=== PATIENT | female | born 1970 | race Caucasian/White ===

== ENCOUNTER 2017-04-10 15:13 | Observation (INO) ==
[2017-04-10] MEDS ORDERED: *HR* HYDROmorphone (PF) 1 MG/ML SYRINGE IVP ONE ×2 (15:33→22:35)
[2017-04-10] MEDS ORDERED: Aspirin 325 MG TABLET PO ONE (15:33)
[2017-04-10] MEDS ORDERED: Ondansetron 4 MG/2 ML VIAL IVP ONE (15:49)
--- NOTE | 2017-04-10 15:53 | Emergency Department Note ---
Disposition Clinical Impression: RUQ pain Chest pain Qualifiers: Chest pain type: unspecified Qualified Code(s): R07.9 - Chest pain, unspecified Dyspnea Qualifiers: Dyspnea type: unspecified Qualified Code(s): R06.00 - Dyspnea, unspecified Disposition: Admitted As Inpatient Condition: Good Time of Disposition: 19:47 SOB HPI - General Chief Complaint: ED Shortness of Breath/Dyspnea Stated Complaint: ERIC Time Seen by Provider: 04/10/17 15:20 Source: patient Mode of arrival: ambulatory Limitations: no limitations Nursing Notes Reviewed: Yes Vital Signs Reviewed: Yes - History of Present Illness Patient is a 46-year-old female with past medical history of CHF, COPD, migraines, previous PE. She states that she is not currently on a blood thinner. She says that she was on Lovenox and xarelto a year ago and that this was discontinued. Patient has had multiple presentations to the ER since the beginning of the ER over 20. She presents today due to shortness of breath, right-sided chest pain, right upper quadrant pain, nausea and vomiting. She also states she had fevers elevated liver 100 at home. She says that she has had PE in the right lower lung before and presented with this kind of pain. She was seen 5-6 days ago in the ER for abdominal pain. She said that time she had significant generalized abdominal pain but then this was relieved after a large bowel movement 1-2 days ago. She had a d-dimer done during that visit that was elevated mildly over 500. She is told that if she has shortness of breath that was worsening to come back for a VQ scan. She says that she cannot have a CTA of the chest due to being allergic to contrast, she gets swelling of the neck and throat with IV contrast. - Related Data Home Medications Medication Instructions Recorded Confirmed Albuterol Sulfate [Proair Hfa] 1 - 2 puff IH Q4H PRN MDD See 02/18/16 04/15/16 Comment. Aspirin 325 mg PO DAILY 03/29/16 04/30/16 Previous Rx's Medication Instructions Recorded Ciprofloxacin OPTH Soln [Ciloxan 2 drop RIGHT EAR QID #1 bottle 05/19/16 OPTH Soln] Hyoscyamine SL [Levsin SL] 0.125 mg SL TID 5 Days 05/19/16 OxyCODONE/APAP 5/325 [Percocet 1 each PO Q6HR PRN #15 tablet 06/08/16 5/325] Promethazine [Phenergan] 25 mg PO Q8HR PRN #10 tablet 06/08/16 Promethazine [Phenergan] 12.5 mg PO Q8HR #5 tablet 06/14/16 Buspirone HCl [Buspar] 10 mg PO BID PRN 14 Days 06/23/16 OxyCODONE/APAP 5/325 [Percocet 1 each PO Q6HR PRN #10 tablet 06/27/16 5/325 MG] cephALEXin [Keflex] 500 mg PO TID #21 capsule 08/07/16 Promethazine [Phenergan] 25 mg PO Q8HR PRN #10 tablet 08/15/16 Meloxicam [Mobic] 7.5 mg PO DAILY #20 tablet 08/27/16 Promethazine [Phenergan] 25 mg PO Q8HR PRN #10 tablet 09/03/16 Tramadol HCl [Ultram] 50 mg PO QID PRN #15 tab 11/25/16 Acetaminophen w/Cod 300-30 mg 1 each PO Q6HR #12 tablet 01/11/17 [Tylenol w/Codeine #3] Diclofenac Sodium [Voltaren] 50 mg PO Q8HR #30 tablet. 01/11/17 Ondansetron ODT [Zofran ODT] 4 mg SL Q6HR #20 tab.rapdis 01/11/17 Dicyclomine [Bentyl] 10 mg PO QID PRN #20 capsule 02/12/17 Ondansetron HCl [Zofran] 4 mg PO Q8HR PRN #15 tablet 02/12/17 Ibuprofen [Motrin] 800 mg PO Q8HR #15 tablet 03/16/17 Ondansetron ODT [Zofran ODT] 4 mg SL Q6HR #8 tab.rapdis 03/16/17 Dicyclomine [Bentyl] 10 mg PO QID #20 capsule 04/09/17 Docusate Sodium [Colace] 100 mg PO BID #20 capsule 04/09/17 Promethazine [Phenergan] 25 mg PO Q6HR PRN #20 tablet 04/09/17 Rivaroxaban [Xarelto] 15 mg PO BID #6 tablet 04/09/17 Allergies Allergy/AdvReac Type Severity Reaction Status Date / Time diphenhydramine Allergy See Verified 04/10/17 15:17 [From Benadryl] Comments gabapentin Allergy See Verified 04/10/17 15:17 Comments hydrocodone [From Vicodin] Allergy See Verified 04/10/17 15:17 Comments ketorolac [From Toradol] Allergy See Verified 04/10/17 15:17 Comments sumatriptan [From Imitrex] Allergy See Verified 04/10/17 15:17 Comments morphine AdvReac Itching Verified 04/10/17 15:17 nitroglycerin AdvReac Hypotension Verified 04/10/17 15:17 iv dye AdvReac Severe Hives Uncoded 01/01/17 22:56 All systems ED: reviewed and negative except as stated. Constitutional: Reports: fever Cardiovascular: Reports: chest pain, dyspnea on exertion Respiratory: Reports: dyspnea, hemoptysis Gastrointestinal: Reports: abdominal pain, nausea, vomiting. Denies: diarrhea, constipation, hematemesis, melena Past Medical History - Past Medical History Attestation: Yes The following information was validated with the patient. Source: patient Medical history: Reports: CHF, COPD, DVT, hyperlipidemia, migraine, pulmonary embolus, seizures, syncope Surgical history: Reports: , hysterectomy, other Psychiatric history: Reports: anxiety, depression, panic disorder, previous psychiatric hospitalization [employer] history: Reports: non-contributory - Social History Smoking Status: Light tobacco smoker Smokeless Tobacco Status: No Alcohol use: Reports: none Drug use: Reports: none Physical Exam Patient is crying, holding her right upper abdomen and right lower chest. She is yelling that she cannot breathe. Oxygen saturation is 99% on room air. She is pushing her face into the side of the bed and says that she is having severe pain. - General Limitations: no limitations General appearance: alert, other - Head Head exam: atraumatic, normocephalic, normal inspection - Eye Eye exam: Present: normal appearance, PERRL, EOMI - ENT ENT exam: normal exam, normal oropharynx, mucous membranes moist - Neck Neck exam: Present: normal inspection, full ROM, trachea midline - Chest Chest inspection: Present: normal inspection, symmetric chest wall rise, tenderness (right lateral ribs 4-6 ). Absent: rash - Respiratory Respiratory exam: Present: normal lung sounds bilaterally. Absent: respiratory distress, wheezes, stridor - Cardiovascular Cardiovascular exam: Present: normal rhythm, tachycardia, normal heart sounds - Abdominal Exam Abdominal exam: Present: soft, tenderness (RUQ, moderate). Absent: distention, guarding, rebound, rigidity - Extremities Exam Extremities exam: Present: normal inspection, full ROM. Absent: tenderness, pedal edema, calf tenderness - Neurological Exam Neurological exam: Present: alert, oriented X3 - Psychiatric Psychiatric exam: Present: anxious - Skin Skin exam: Present: warm, dry, intact, normal color Course Course Narrative: Patient was tachycardic, tachypneic. Patient is crying, holding her right upper abdomen and right lower chest. She is yelling that she cannot breathe. Oxygen saturation is 99% on room air. She is pushing her face into the side of the bed and says that she is having severe pain. Patient has tenderness of the right upper quadrant as well. We will obtain basic labs, troponin, EKG, chest x -ray, d-dimer. Also obtain LFTs and lipase. I looked back at her previous labs , LFTs and lipase were all within normal limits 5-6 days ago. Patient has multiple visits over the past several months, multiple ER visits over the past several years. At times, she was here 5-6 times a month. She said various complaints from chest pain to abdominal pain to falls. She says that she is allergic to morphine and that Dilaudid works for her. I also did an [facility] report that shows multiple different pills for narcotics filled at multiple different pharmacies. EKG shows sinus rhythm with no acute ST changes. 19:44 white blood cell count, hemoglobin all within normal limits. LFTs within normal limits. BMP within normal limits. Troponin negative. Chest x- ray negative for any acute cardiopulmonary process. I discussed the results with the patient, she states that she is still having significant pain. I talked with the hospitalist, Dr. Hernandez, for admission. He requested that I give the patient Lovenox 1 mg/kg 1 dose to cover for possible PE despite the negative d-dimer. WIll admit for further care and obs, trend troponins. Vital Signs Temperature 97.9 F 04/10/17 15:14 Pulse Rate 109 04/10/17 15:14 Respiratory Rate 24 04/10/17 15:14 Blood Pressure 162/103 04/10/17 15:14 O2 Sat by Pulse Oximetry 97 04/10/17 15:14 Temperature 97.9 F 04/10/17 15:14 Pulse Rate 85 04/10/17 19:26 Respiratory Rate 16 04/10/17 19:26 Blood Pressure 123/86 04/10/17 19:26 O2 Sat by Pulse Oximetry 96 04/10/17 19:26 Oxygen Delivery Oxygen Delivery Room Air Shortness of Breath/Dyspnea - MDM Narrative Medical decision making narrative: white blood cell count, hemoglobin all within normal limits. LFTs within normal limits. BMP within normal limits. Troponin negative. Chest x-ray negative for any acute cardiopulmonary process. I discussed the results with the patient, she states that she is still having significant pain. I talked with the hospitalist, Dr. Hernandez, for admission. He requested that I give the patient Lovenox 1 mg/kg 1 dose to cover for possible PE despite the negative d-dimer. WIll admit for further care and obs, trend troponins. Vitals continued to be within normal limits at this time. - Medical Records Medical records reviewed: Yes I reviewed the patient's medical records. - Lab Data Lab results reviewed: Yes I reviewed the patient's lab results. Result diagrams: 04/10/17 16:20 04/10/17 16:20 Lab Results 04/10/17 04/10/17 04/10/17 Range/Units 16:20 16:20 16:20 WBC 7.4 (4.3-11.1) K/mcL RBC 5.15 H (3.82-4.97) M/mcL Hgb 14.5 (11.5-15.4) g/dL Hct 45.6 H (35.3-44.9) % MCV 88.5 (83.0-100.0) fL MCH 28.2 (28.0-33.3) pg MCHC 31.8 (31.6-35.5) g/dL RDW 14.2 (11.5-14.5) % Plt Count 250 (140-400) K/mcL MPV 9.7 (9.4-12.4) fL Immature Gran % 0.1 (0-4) % Seg Neutrophils % 71.4 % Lymphocytes % 20.5 % Monocytes % 6.5 % Eosinophils % 1.2 % Basophils % 0.3 % Neutrophils # 5.2 (1.6-8.9) K/mcL Lymphocytes # 1.5 (0.6-4.6) K/mcL Monocytes # 0.5 (0.0-1.3) K/mcL Eosinophils # 0.1 (0.0-0.6) K/mcL Basophils # 0.0 (0.0-0.2) K/mcL Immature Plt Fraction 3.7 (1.1-6.1) % D-Dimer (0-500) ng/mLFEU Sodium 138 (136-145) mEq/L Potassium 4.0 (3.5-4.5) mEq/L Chloride 107 (98-109) mEq/L Carbon Dioxide 22 (19-29) mEq/L BUN 14 (7-20) mg/dL Creatinine 0.82 (0.57-1.11) mg/dL Est GFR ( Amer) > 60 (> 60) Est GFR (Non-Af Amer) > 60 (> 60) BUN/Creatinine Ratio 17 (6-26) Glucose 94 (70-99) mg/dL Calculated Osmolality 286 (280-300) Lactic Acid 1.5 (0.5-2.2) mmol/L Calcium 8.9 (8.6-10.8) mg/dL Total Bilirubin (0.2-1.2) mg/dL Direct Bilirubin (0.0-0.5) mg/dL Indirect Bilirubin (0.0-1.2) mg/dL AST (5-34) Units/L ALT (0-55) Units/L Alkaline Phosphatase (38-126) Units/L Troponin I (0-0.03) ng/mL B-Natriuretic Peptide (0-100) pg/mL Serum Total Protein (6.0-8.3) g/dL Albumin (3.5-5.0) g/dL Globulin (2.4-3.5) g/dL Albumin/Globulin Ratio (1.1-2.2) Lipase (8-78) Units/L 04/10/17 04/10/17 04/10/17 Range/Units 16:20 16:20 16:20 WBC (4.3-11.1) K/mcL RBC (3.82-4.97) M/mcL Hgb (11.5-15.4) g/dL Hct (35.3-44.9) % MCV (83.0-100.0) fL MCH (28.0-33.3) pg MCHC (31.6-35.5) g/dL RDW (11.5-14.5) % Plt Count (140-400) K/mcL MPV (9.4-12.4) fL Immature Gran % (0-4) % Seg Neutrophils % % Lymphocytes % % Monocytes % % Eosinophils % % Basophils % % Neutrophils # (1.6-8.9) K/mcL Lymphocytes # (0.6-4.6) K/mcL Monocytes # (0.0-1.3) K/mcL Eosinophils # (0.0-0.6) K/mcL Basophils # (0.0-0.2) K/mcL Immature Plt Fraction (1.1-6.1) % D-Dimer 217 (0-500) ng/mLFEU Sodium (136-145) mEq/L Potassium (3.5-4.5) mEq/L Chloride (98-109) mEq/L Carbon Dioxide (19-29) mEq/L BUN (7-20) mg/dL Creatinine (0.57-1.11) mg/dL Est GFR ( Amer) (> 60) Est GFR (Non-Af Amer) (> 60) BUN/Creatinine Ratio (6-26) Glucose (70-99) mg/dL Calculated Osmolality (280-300) Lactic Acid (0.5-2.2) mmol/L Calcium (8.6-10.8) mg/dL Total Bilirubin (0.2-1.2) mg/dL Direct Bilirubin (0.0-0.5) mg/dL Indirect Bilirubin (0.0-1.2) mg/dL AST (5-34) Units/L ALT (0-55) Units/L Alkaline Phosphatase (38-126) Units/L Troponin I 0.00 (0-0.03) ng/mL B-Natriuretic Peptide 77 (0-100) pg/mL Serum Total Protein (6.0-8.3) g/dL Albumin (3.5-5.0) g/dL Globulin (2.4-3.5) g/dL Albumin/Globulin Ratio (1.1-2.2) Lipase (8-78) Units/L 04/10/17 Range/Units 16:20 WBC (4.3-11.1) K/mcL RBC (3.82-4.97) M/mcL Hgb (11.5-15.4) g/dL Hct (35.3-44.9) % MCV (83.0-100.0) fL MCH (28.0-33.3) pg MCHC (31.6-35.5) g/dL RDW (11.5-14.5) % Plt Count (140-400) K/mcL MPV (9.4-12.4) fL Immature Gran % (0-4) % Seg Neutrophils % % Lymphocytes % % Monocytes % % Eosinophils % % Basophils % % Neutrophils # (1.6-8.9) K/mcL Lymphocytes # (0.6-4.6) K/mcL Monocytes # (0.0-1.3) K/mcL Eosinophils # (0.0-0.6) K/mcL Basophils # (0.0-0.2) K/mcL Immature Plt Fraction (1.1-6.1) % D-Dimer (0-500) ng/mLFEU Sodium (136-145) mEq/L Potassium (3.5-4.5) mEq/L Chloride (98-109) mEq/L Carbon Dioxide (19-29) mEq/L BUN (7-20) mg/dL Creatinine (0.57-1.11) mg/dL Est GFR ( Amer) (> 60) Est GFR (Non-Af Amer) (> 60) BUN/Creatinine Ratio (6-26) Glucose (70-99) mg/dL Calculated Osmolality (280-300) Lactic Acid (0.5-2.2) mmol/L Calcium (8.6-10.8) mg/dL Total Bilirubin 0.4 (0.2-1.2) mg/dL Direct Bilirubin 0.2 (0.0-0.5) mg/dL Indirect Bilirubin 0.2 (0.0-1.2) mg/dL AST 15 (5-34) Units/L ALT 16 (0-55) Units/L Alkaline Phosphatase 99 (38-126) Units/L Troponin I (0-0.03) ng/mL B-Natriuretic Peptide (0-100) pg/mL Serum Total Protein 7.3 (6.0-8.3) g/dL Albumin 3.3 L (3.5-5.0) g/dL Globulin 4.0 H (2.4-3.5) g/dL Albumin/Globulin Ratio 0.8 L (1.1-2.2) Lipase 16 (8-78) Units/L - Radiology Data Radiology results reviewed: Yes I reviewed the patient's radiology results. Chest X-Ray 04/10/17 15:33 IMPRESSION: No acute process. D/ / Fercho Spivey MD / Fercho Spivey MD Interpreting Provider: Fercho Spivey MD - EKG Data EKG attestation: Yes I reviewed and interpreted this EKG. EKG results narrative: 04/10/2017 at 15:42. Normal sinus rhythm. Rate 81. MT 112. QRS 91. QTC 402. Normal axis. No acute ST elevation or depression. No acute changes from previous EKG on 02/20/2017 S.B.Harsh - S.BAleksandraAMirian Situation: Demographics, MOA Background: Presenting Complaint, Relevant PMH, Meds, & Allergies Assessment: Vital Signs, Course and respsone to treatment, Exam Concerns, Patient/Family Expectation, Pertinant Lab Results, Outstanding Labs Recommendation: Barrier(s) to disposition, Recommendation based on pending studies, treatments, or consults S.B.A.Erwin Report Given to: Dr. Leonardo Horne Repor Time: 19:47 Attestation Statement - Attestation Attestation: I examined this patient and my medical decision-making was reviewed with the Resident Physician, Dr. Larkin. I agree with the documented findings, disposition and treatment plan as described except to the extent set forth below. Patient is a 46-year-old female, appears older than stated age who presents to the emergency department today with complaints of recurrent shortness of breath , right-sided chest wall pain right upper quadrant pain nausea and vomiting. Patient states she was here the emergency department a few days ago evaluated for the same and she is convinced that she has another PE. Patient has a history of COPD, CHF, prior PE and was discontinued on all anticoagulation approximately one year ago. Patient arrives stable vital signs room air sats are 99% but patient is writhing on the bed holding her right chest wall right upper quadrant area with her hands saying that she cannot breathe. Patient was here and had recent extensive lab evaluation and imaging was discharged home and told that if she had any worsening symptoms with her breathing to come back for possible VQ scan. Patient states she cannot tolerate IV contrast to have a CT chest to rule out PE because she has anaphylaxis to IV dye. Patient also reports that since she has been having subjective fevers and chills, ongoing nausea and vomiting at home with an inability to tolerate anything by mouth as well as right chest wall pain. I agree with patient's physical exam findings as documented on my assessment patient had mild right upper quadrant and epigastric tenderness to palpation, good bowel sounds, no peritoneal signs are noted. He shows placed on a air sampling and monitoring and continuous pulse ox, is given IV pain meds and antiemetics, laboratory evaluation was initiated and patient had chest x-ray. Patient got almost complete relief of pain following IV pain medicine administration was resting comfortably with stable vitals throughout her ED course. Patient's labs including d-dimer and troponin were all within normal limits chest x-ray was also within normal limits. INR reassessment patient began to complain that her pain was coming back. We decided we will admit her for further evaluation of this right-sided chest pain and right abdominal pain for further evaluation. Discussed the case with the hospitalist who accepted the patient for admission and further evaluation.
[2017-04-10 16:35] LABS: Basophils % 0.3 %; Eosinophils # 0.1 K/mcL (0.0-0.6); Eosinophils % 1.2 %; Hematocrit 45.6 % (35.3-44.9); Hemoglobin 14.5 g/dL (11.5-15.4); Immature Granulocytes % 0.1 % (0-4); Immature Platelets 3.7 % (1.1-6.1); Lymphocytes # 1.5 K/mcL (0.6-4.6); Lymphocytes % 20.5 %; Mean Corpuscular HGB Conc 31.8 g/dL (31.6-35.5); Mean Corpuscular Hemoglobin 28.2 pg (28.0-33.3); Mean Corpuscular Volume 88.5 fL (83.0-100.0); Mean Platelet Volume 9.7 fL (9.4-12.4); Monocytes # 0.5 K/mcL (0.0-1.3); Monocytes % 6.5 %; Neutrophils # 5.2 K/mcL (1.6-8.9); Platelet Count 250 K/mcL (140-400); Red Blood Count 5.15 M/mcL (3.82-4.97); Red Cell Distribution Width 14.2 % (11.5-14.5); Segmented Neutrophils % 71.4 %
[2017-04-10 16:49] LABS: BUN/Creatinine Ratio 17 (6-26); Blood Urea Nitrogen 14 mg/dL (7-20); Calcium 8.9 mg/dL (8.6-10.8); Carbon Dioxide 22 mEq/L (19-29); Chloride 107 mEq/L (98-109); Glucose 94 mg/dL (70-99); Osmolality,Calculated 286 (280-300); eGFR For African Americans > 60 (> 60); eGFR For Non-African Americans > 60 (> 60)
[2017-04-10 16:50] LABS: Albumin 3.3 g/dL (3.5-5.0); Albumin/Globulin Ratio 0.8 (1.1-2.2); Bilirubin,Direct 0.2 mg/dL (0.0-0.5); Bilirubin,Indirect 0.2 mg/dL (0.0-1.2); Bilirubin,Total 0.4 mg/dL (0.2-1.2); Total Protein 7.3 g/dL (6.0-8.3)
[2017-04-10 18:14] LABS: Sodium 138 mEq/L (136-145)
[2017-04-10] MEDS ORDERED: *HR* Enoxaparin 100 MG/ML SYRINGE SQ STA (19:37)
[2017-04-10] MEDS ORDERED: Ondansetron 4 MG/2 ML VIAL IVP PRN (20:12)
[2017-04-10] MEDS ORDERED: Acetaminophen 325 MG TABLET PO PRN (20:12)
[2017-04-10] MEDS ORDERED: Naloxone 0.4 MG/ML INJ IVP PRN (20:12)
[2017-04-10] MEDS ORDERED: Hyoscyamine SL 0.125 MG TAB.SUBL SL PRN (20:14)
[2017-04-10 21:04] LABS: Prothrombin Time 11.2 Seconds (9.4-12.1)
--- NOTE | 2017-04-10 23:37 | Internal Med History&Physical ---
Date of Encounter: 04/11/17 Time of Encounter: 23:20 Assessment and Plan (1) Abdominal pain of unknown etiology Current visit: No Status: Acute Acute on chronic abdominal pain, right upper quadrant pain - unclear etiology IV Dilaudid as needed, IV Phenergan, Bentyl, Levsin CT abdomen and pelvis - no acute process Chest x-ray - no acute process VQ scan - pending Cardiac telemetry, pulse ox, monitor closely (2) Chest pain Current visit: No Status: Acute Atypical chest pain - likely to be ACS Continue Aspirin, Lovenox 1 mg/kg subcutaneous given in ED VQ scan - pending Troponin - negative, cycle troponin D-dimer - 217 EKG - normal sinus rhythm with no acute ST-T changes Chest x-ray - no acute process Cardiac telemetry, monitor closely Qualifiers: Chest pain type: unspecified Qualified Code(s): R07.9 - Chest pain, unspecified (3) Anxiety Current visit: No Status: Chronic Chronic anxiety with history of panic attacks Continue Ativan as needed (4) History of pulmonary embolism Current visit: No Status: Chronic History of PE - anticoagulation has been discontinued as per patient (5) DVT prophylaxis Current visit: No Status: Acute Continue heparin subcutaneous Internal Medicine - H&P: HPI Chief complaint: Shortness of breath, chest pain Admitted From: Emergency Dept Plans for Post Hospital Care: Home History of present illness: Ms. Shelby is a 46 year old female with past medical history of CHF, COPD, PE, cough hyperlipidemia, anxiety and panic disorder. Patient presents to the ED with complaints of shortness of breath and right-sided chest pain. Examined in the room. Patient is awake and alert. Not in any distress but in discomfort due to pain. Able to provide a history. No family members at bedside. Patient states she developed shortness of breath and right-sided chest pain and right upper quadrant pain about 1 week ago. Symptoms gradually worsened. She was seen in the ED yesterday for similar complaints and abdominal pain. Patient states her right upper quadrant and right-sided chest pain is sharp and rates it a 9 out of 10. No alleviating factors. Worse with movement. Patient states she needs Dilaudid to help with the pain. She also wants Phenergan for her nausea. Patient states the pain that she is experiencing now is similar to the pain she had during her PE. She also complains of fever. No other acute complaints. Initial workup in the ED is negative except for UTI. Patient had a CT scan of the abdomen and pelvis yesterday and it was normal. Patient refuses to have CTA chest because of contrast allergy. VQ scan is pending. CODE STATUS full code. Past Med Surg Social Fam HX - Past Medical History Medical history: CHF, COPD, DVT, hyperlipidemia, migraine, pulmonary embolus, seizures, syncope Psychiatric history: anxiety, depression, panic disorder, previous psychiatric hospitalization - Past Surgical History Surgical History: , hysterectomy, other - Social History Smoking Status: Light tobacco smoker Smokeless Tobacco Status: No Alcohol use: none Drug use: none - Family History Mother Living Status: Hx Family Cardiac Disorders: Yes Hx Family Respiratory Disorders: Yes (lung ca) Hx Family Cancer: Yes (lung) Hx Family GI Disorders: No Hx Family Endocrine Disorder: No Hx Family Neuromuscular Disorders: No Hx Family Neurologic Disorders: No Hx Family HEENT Disorders: No Hx Family Autoimmune Disorders: No Father Living Status: Still Living Hx Family Cardiac Disorders: Yes Hx Family Endocrine Disorder: Yes (DM) Brother Living Status: Still Living Hx Family Cardiac Disorders: Yes (OR) Internal Medicine - H&P: Meds Albuterol Sulfate [Proair Hfa] 1 - 2 puff IH Q4H PRN MDD See Comment. 02/18/16 [ History] Aspirin 325 mg PO DAILY 03/29/16 [History] Ciprofloxacin OPTH Soln [Ciloxan OPTH Soln] 2 drop RIGHT EAR QID #1 bottle 05/19 [Rx] Hyoscyamine SL [Levsin SL] 0.125 mg SL TID 5 Days 05/19/16 [Rx] OxyCODONE/APAP 5/325 [Percocet 5/325] 1 each PO Q6HR PRN #15 tablet 06/08/16 [Rx ] Promethazine [Phenergan] 25 mg PO Q8HR PRN #10 tablet 06/08/16 [Rx] Promethazine [Phenergan] 12.5 mg PO Q8HR #5 tablet 06/14/16 [Rx] Buspirone HCl [Buspar] 10 mg PO BID PRN 14 Days 06/23/16 [Rx] OxyCODONE/APAP 5/325 [Percocet 5/325 MG] 1 each PO Q6HR PRN #10 tablet 06/27/16 [Rx] cephALEXin [Keflex] 500 mg PO TID #21 capsule 08/07/16 [Rx] Promethazine [Phenergan] 25 mg PO Q8HR PRN #10 tablet 08/15/16 [Rx] Meloxicam [Mobic] 7.5 mg PO DAILY #20 tablet 08/27/16 [Rx] Promethazine [Phenergan] 25 mg PO Q8HR PRN #10 tablet 09/03/16 [Rx] Tramadol HCl [Ultram] 50 mg PO QID PRN #15 tab 11/25/16 [Rx] Acetaminophen w/Cod 300-30 mg [Tylenol w/Codeine #3] 1 each PO Q6HR #12 tablet 01/11/17 [Rx] Diclofenac Sodium [Voltaren] 50 mg PO Q8HR #30 tablet. 01/11/17 [Rx] Ondansetron ODT [Zofran ODT] 4 mg SL Q6HR #20 tab.rapdis 01/11/17 [Rx] Dicyclomine [Bentyl] 10 mg PO QID PRN #20 capsule 02/12/17 [Rx] Ondansetron HCl [Zofran] 4 mg PO Q8HR PRN #15 tablet 02/12/17 [Rx] Ibuprofen [Motrin] 800 mg PO Q8HR #15 tablet 03/16/17 [Rx] Ondansetron ODT [Zofran ODT] 4 mg SL Q6HR #8 tab.rapdis 03/16/17 [Rx] Dicyclomine [Bentyl] 10 mg PO QID #20 capsule 04/09/17 [Rx] Docusate Sodium [Colace] 100 mg PO BID #20 capsule 04/09/17 [Rx] Promethazine [Phenergan] 25 mg PO Q6HR PRN #20 tablet 04/09/17 [Rx] Rivaroxaban [Xarelto] 15 mg PO BID #6 tablet 04/09/17 [Rx] 3 Allergy/AdvReac Type Severity Reaction Status Date / Time diphenhydramine Allergy See Verified 04/10/17 15:17 [From Benadryl] Comments gabapentin Allergy See Verified 04/10/17 15:17 Comments hydrocodone [From Vicodin] Allergy See Verified 04/10/17 15:17 Comments ketorolac [From Toradol] Allergy See Verified 04/10/17 15:17 Comments sumatriptan [From Imitrex] Allergy See Verified 04/10/17 15:17 Comments morphine AdvReac Itching Verified 04/10/17 15:17 nitroglycerin AdvReac Hypotension Verified 04/10/17 15:17 iv dye AdvReac Severe Hives Uncoded 01/01/17 22:56 All Systems PM: A 10-system review of systems was performed and is negative for pertinent findings except as documented above in the HPI. - Constitutional Constitutional: fatigue, fever(s), no weakness - EENT Eyes: no blurry vision - Cardiovascular Cardiovascular ROS IM: chest pain, dyspnea, dyspnea on exertion, no edema, no lightheadedness, no orthopnea, no palpitations, no syncope - Respiratory Respiratory: no cough, no dyspnea, no hemoptysis, no dyspnea on exertion, no wheezing, no chest congestion - Gastrointestinal Gastrointestinal: abdominal pain (Right upper quadrant pain), nausea, no bloating, no cramping, no diarrhea, no hematemesis, no hematochezia, no melena, no vomiting - Genitourinary Genitourinary: no dysuria - Musculoskeletal Musculoskeletal ROS IM: arthralgias - Neurological Neurological ROS: no abnormal gait, no confusion, no dizziness, no loss of vision, no numbness, no tingling - Constitutional Vitals: Temp Pulse Resp BP Pulse Ox 98.0 F 63 27 113/58 95 04/10/17 22:03 04/10/17 22:03 04/10/17 22:03 04/10/17 22:03 04/10/17 22:03 General appearance: Present: A&O X 3, no acute distress, obese, answers questions appropriately. Absent: cooperative Exam: Patient is anxious, in discomfort due to pain - Head Head exam: Present: atraumatic - Eye Eye exam: Present: EOMI - ENT ENT exam: Present: mucous membranes dry - Respiratory Respiratory exam: Present: CTAB. Absent: accessory muscle use, rales, rhonchi, wheezes, tachypnea - Cardiovascular Cardiovascular exam: Present: RRR, +S1, +S2 - GI/Abdominal GI/Abdominal exam: Present: soft, tenderness (Mild right upper quadrant tenderness and right side tenderness). Absent: distended, firm, guarding - Extremities Exam Extremities exam: Present: radial pulses palpable and symmetrical. Absent: calf tenderness, cyanotic, pedal edema - Neurological Exam Neurological exam: Present: alert, oriented X3, no focal deficits. Absent: facial droop, speech deficit Internal Med - H&P Results - Labs CBC & Chem 7: 04/10/17 16:20 04/11/17 03:09 Labs: Cardiac Enzymes 04/10/17 Range/Units 20:42 Troponin I 0.00 (0-0.03) ng/mL
[2017-04-10 23:51] LABS: Bilirubin,Urine Negative (Negative); Blood,Urine Moderate (Negative); Clarity,Urine Clear (Clear); Color,Urine Yellow (Yellow); Glucose,Urine (UA) Normal (Normal); Ketones,Urine Negative (Negative); Leukocyte Esterase,Urine Negative (Negative); Nitrite,Urine Positive (Negative); PH,Urine 5.5 pH Units (5.0-8.0); Protein,Urine Negative (Neg-Trace); Urobilinogen,Urine Normal (Normal)
[2017-04-10 23:52] LABS: Bacteria,Urine Many per hpf (None-Few); Hyaline Casts,Urine None Seen per lpf (None-Few); Squamous Epithelial Cell,Urine Many per lpf (None-Few)
[2017-04-11] MEDS ORDERED: *HR* LORazepam 2 MG/ML VIAL IVP PRN (00:16)
[2017-04-11] MEDS ORDERED: *HR* Promethazine 25 MG/ML VIAL IVP PRN (00:16)
[2017-04-11] MEDS ORDERED: *HR* HYDROmorphone (PF) 1 MG/ML SYRINGE IVP PRN (00:18)
[2017-04-11] MEDS ORDERED: *HR* HYDROmorphone (PF) 1 MG/ML SYRINGE IVP ONE (03:48)
[2017-04-11 04:09] LABS: BUN/Creatinine Ratio 16 (6-26); Blood Urea Nitrogen 14 mg/dL (7-20); Carbon Dioxide 26 mEq/L (19-29); Chloride 105 mEq/L (98-109); Chol/HDL Ratio 5.5 (0-4.9); Cholesterol 182 mg/dL (< 200); Glucose 131 mg/dL (70-99); HDL Cholesterol 33 mg/dL (40-59); LDL Cholesterol,Calculated 108 mg/dL (0-99); Magnesium 2.1 mg/dL (1.6-2.6); Osmolality,Calculated 286 (280-300); Potassium 3.2 mEq/L (3.5-4.5); Sodium 137 mEq/L (136-145); Triglycerides 203 mg/dL (< 150); eGFR For African Americans > 60 (> 60); eGFR For Non-African Americans > 60 (> 60)
[2017-04-11] MEDS ORDERED: *HR* Heparin 5,000 UNIT/ML VIAL SQ SCH (06:00)
[2017-04-11] MEDS ORDERED: Famotidine 20 MG/2 ML VIAL IVP SCH (06:00)
[2017-04-11] MEDS ORDERED: Potassium Chloride 40 MEQ, Lidocaine 1% 2 ML in D5% in Water 500 ML IVPB ONE (08:11)
[2017-04-11] MEDS: Aspirin 325 MG TABLET PO SCH ×2 (09:06→10:11)
[2017-04-11] MEDS ORDERED: *HR* OxyCODONE/APAP 5/325 TABLET PO PRN (09:41)
[2017-04-11] MEDS ORDERED: Ipratropium/Albuterol Neb 3 ML IH PRN (09:55)
--- NOTE | 2017-04-11 09:55 | Internal Med Progress Note ---
Date of Encounter: 04/11/17 Time of Encounter: 09:53 - Assessment and plan (1) Chest pain Current Visit: No Status: Acute Assessment and plan: Of unclear etiology serial TNI negative CXR negative CT abd/pelvis: negative for any acute pathology V/Q scan: negative for PE will obtain 2D echo to evaluate LVEF given patient's history of COPD, this may be contributing to patient's SOB will supplement O2 as needed bronchodilator support pain control patient educated about narcotic abuse, she demonstrates understanding and states she is aware of the risks and is currently in genuine pain. Pt denies any morphine allergy and will be given morphine instead of dilauid If 2D echo is negative, likely d/c in am with follow up with PCP Qualifiers: Chest pain type: unspecified Qualified Code(s): R07.9 - Chest pain, unspecified (2) COPD (chronic obstructive pulmonary disease) Current Visit: Yes Status: Acute Assessment and plan: not in acute exacerbation O2 supplementation as needed bronchodilator support as needed Qualifiers: COPD type: unspecified COPD Qualified Code(s): J44.9 - Chronic obstructive pulmonary disease, unspecified (3) Morbid obesity Current Visit: Yes Status: Chronic (4) Drug-seeking behavior Current Visit: Yes Status: Chronic Assessment and plan: as per pharmacy records patient has history of over 20 ER visits this year and sometimes she has come to the ER 4-5 times a month She has gone to multiple pharmacies to fill up narcotic prescriptions will use narcotics with caution (5) History of pulmonary embolism Current Visit: No Status: Chronic Assessment and plan: patient reports of being treated with anticoagulation for six months and is currently off anticoagulation VQ scan negative for PE (6) DVT prophylaxis Current Visit: No Status: Acute Assessment and plan: Heparin SQ (7) Nausea and vomiting Current Visit: No Status: Acute Assessment and plan: pt reports of not getting relief with zofran phenergan IV prn n/v Qualifiers: Vomiting type: unspecified Vomiting Intractability: non-intractable Qualified Code(s): R11.2 - Nausea with vomiting, unspecified (8) Tobacco abuse Current Visit: Yes Status: Chronic Assessment and plan: smoking cessation counseling provided patient refused nicotine supplementation therapy (9) Hypokalemia Current Visit: Yes Status: Acute Assessment and plan: K supplemented continue to monitor electrolytes and supplement as needed - Subjective Interval history: Patient is a 46y/o female who was admitted for atypical chest pain, abd pain, and UTI. Patient is noncompliant with her medications and reports of not having a PCP. She has history of PE and states she was treated for six months with Xarelto and Lovenox and her doctor discontinued those medications. She does not recall the name of the doctor. She was seen in the ER on 04/09 for the same issues and was discharged to home with PO medications. Patient has history of multiple ER visits and has history of filling narcotic prescriptions from multiple different pharmacies. She was admitted this time for a concern for PE given initial presentation. Patient continues to complain of right sided chest pain. Denies any abd pain at this time. Rt sided chest pain is worsened with deep inspiration. All imaging work up has been negative. She reports of being in excruciating pain. Refusing CTA chest stating she has a contrast allergy and does not want to undergo that test. V/Q scan is negative for PE. She is still complaining of mild shortness of breath but is saturating appropriately on room air, and she has history of COPD and is an every day smoker. - Constitutional Vitals: Temp Pulse Resp BP Pulse Ox 97.5 F L 79 15 100/69 92 04/11/17 08:24 04/11/17 08:24 04/11/17 08:24 04/11/17 08:24 04/11/17 08:24 General appearance: Present: A&O X 3, morbidly obese, no acute distress, answers questions appropriately. Absent: cooperative - Head Head exam: Present: atraumatic, normocephalic - Eye Eye exam: Present: conjuntiva pink, sclera anicteric - Respiratory Respiratory exam: Present: CTAB. Absent: respiratory distress, wheezes Internal Medicine: Result - Labs CBC & Chem 7: 04/10/17 16:20 04/11/17 03:09 Labs: BMP 04/11/17 03:09 Sodium 137 Potassium 3.2 L Chloride 105 Carbon Dioxide 26 BUN 14 Creatinine 0.89 Glucose 131 H Calcium 9.0 Cardiac Enzymes 04/10/17 04/11/17 04/11/17 Range/Units 20:42 03:09 09:05 Troponin I 0.00 0.00 0.00 (0-0.03) ng/mL Urine 04/10/17 Range/Units 23:40 Urine Color Yellow (Yellow) Urine Clarity Clear (Clear) Urine pH 5.5 (5.0-8.0) pH Units Ur Specific [place] 1.020 (1.010-1.025) Urine Protein Negative (Neg-Trace) mg/dL Urine Glucose (UA) Normal (Normal) mg/dL - ABG Interpretation ABG results: PT/INR, D-dimer PT 11.2 Seconds (9.4-12.1) 04/10/17 20:42 D-Dimer 217 ng/mLFEU (0-500) 04/10/17 16:20 - Impressions Impressions Pulmonary Perfusion Imaging 04/11/17 06:20 IMPRESSION: Low Probability for Pulmonary Embolus. D/ / Kirby Lind MD / Kirby Lind MD Interpreting Provider: Kirby Lind MD Consult Discharge Plan - Plan Referrals: NONE,PCP [Primary Care Provider] -
[2017-04-11] MEDS ORDERED: *HR* Morphine 2 MG/ML SYRINGE IVP PRN (10:16)
[2017-04-11 17:27] VITALS: BP 126/84
--- NOTE | 2017-04-13 14:08 | Electrocardiograph Report ---
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
== END 2017-04-11 18:03 | disposition left against medical advice (07) ==
LOC: 3BNU 15:13 → EMEROO 15:13 → 3NENU 20:39
PROVIDERS: ADMIT Family Medicine; ATTEND Registered Nurse

== ENCOUNTER 2017-07-30 17:03 | Observation (INO) ==
[2017-07-30] MEDS ORDERED: Ipratropium/Albuterol Neb 3 ML IH ONE (17:22)
[2017-07-30] MEDS ORDERED: methylPREDNISolone 125 MG/2 ML VIAL IVP ONE (17:22)
--- NOTE | 2017-07-30 17:47 | Emergency Department Note ---
Disposition Clinical Impression: Acute exacerbation of chronic obstructive airways disease Chest pain Qualifiers: Chest pain type: unspecified Qualified Code(s): R07.9 - Chest pain, unspecified Dyspnea Qualifiers: Dyspnea type: shortness of breath Qualified Code(s): R06.02 - Shortness of breath Disposition: Admitted As Inpatient Condition: Good Time of Disposition: 21:16 General Adult HPI - General Chief complaint: ED Shortness of Breath/Dyspnea Stated complaint: cheryl Time Seen by Provider: 07/30/17 17:14 Source: patient Limitations: no limitations Nursing Notes Reviewed: Yes Vital Signs Reviewed: Yes - History of Present Illness HPI Narrative: Patient is a 46 showed a marked sense emergency department with shortness of breath. She states that this has been ongoing for weeks to months. She states that she has recently become sick over the last 4-5 days and her symptoms have worsened. She is now having left-sided chest pain that is sharp and constant. She rates it as an 8 out of 10. She denies any radiation of the pain. States that she has been coughing and the cough is nonproductive. He said that she has coughed up blood and mucus. Patient states that she has vomited in the past. Patient states that she has a history of pulmonary embolus which she has to have V/Q scans and a d-dimer. Pain Scale: 8 - Related Data Home Medications Medication Instructions Recorded Confirmed Albuterol Neb [Proventil Neb] 2.5 mg IH Q4HR PRN 04/11/17 04/11/17 Aspirin [Lo-Dose Aspirin EC] 81 mg PO DAILY 04/11/17 04/11/17 Promethazine [Phenergan] 25 mg PO Q6HR PRN 04/11/17 04/11/17 Previous Rx's Medication Instructions Recorded Azithromycin [Zithromax] 250 mg PO DAILY #6 tablet 05/19/17 Ondansetron ODT [Zofran ODT] 4 mg SL Q6HR #10 tab.rapdis 06/01/17 Promethazine [Phenergan] 25 mg PO Q8HR PRN #14 tablet 07/16/17 Guaifenesin/D-Methorphan Hb/PE 5 ml PO QID PRN #118 ml 07/28/17 [Robitussin Cough-Cold Cf Liq] Allergies Allergy/AdvReac Type Severity Reaction Status Date / Time diphenhydramine Allergy See Verified 07/30/17 17:12 [From Benadryl] Comments gabapentin Allergy See Verified 07/30/17 17:12 Comments hydrocodone [From Vicodin] Allergy See Verified 07/30/17 17:12 Comments ketorolac [From Toradol] Allergy See Verified 07/30/17 17:12 Comments sumatriptan [From Imitrex] Allergy See Verified 07/30/17 17:12 Comments nitroglycerin AdvReac Hypotension Verified 07/30/17 17:12 iv dye AdvReac Severe Hives Uncoded 07/30/17 17:12 All systems ED: reviewed and negative except as stated. Cardiovascular: Reports: chest pain Respiratory: Reports: cough, dyspnea, hemoptysis Gastrointestinal: Reports: vomiting Past Medical History - Past Medical History Medical history: Reports: CHF, COPD, DVT, hyperlipidemia, migraine, pulmonary embolus, seizures, syncope Surgical history: Reports: , hysterectomy, other Psychiatric history: Reports: anxiety, depression, panic disorder, previous psychiatric hospitalization [employer] history: Reports: non-contributory - Social History Smoking Status: Current every day smoker Smokeless Tobacco Status: No Alcohol use: Reports: none Drug use: Reports: none Physical Exam - General Limitations: no limitations General appearance: alert, in no apparent distress - Head Head exam: atraumatic, normocephalic - Eye Eye exam: Present: normal appearance, EOMI - Neck Neck exam: Present: normal inspection, full ROM, trachea midline - Respiratory Respiratory exam: Present: wheezes (Bilateral wheezes) - Cardiovascular Cardiovascular exam: Present: regular rate, normal rhythm, normal heart sounds, +S1, +S2 - Abdominal Exam Abdominal exam: Present: soft, tenderness, normal bowel sounds Abdominal tenderness: Present: diffuse, mild - Extremities Exam Extremities exam: Present: normal inspection, full ROM. Absent: tenderness, calf tenderness - Neurological Exam Neurological exam: Present: alert, oriented X3 - Psychiatric Psychiatric exam: Present: normal affect, normal mood - Skin Skin exam: Present: warm, dry, intact Course Vital Signs Temperature 98.2 F 07/30/17 17:10 Pulse Rate 97 07/30/17 17:10 Respiratory Rate 26 07/30/17 17:10 Blood Pressure 124/84 07/30/17 17:10 O2 Sat by Pulse Oximetry 95 07/30/17 17:10 Temperature 98.2 F 07/30/17 17:10 Pulse Rate 100 07/30/17 20:51 Respiratory Rate 20 07/30/17 20:51 Blood Pressure 131/83 07/30/17 20:51 O2 Sat by Pulse Oximetry 95 07/30/17 20:51 Oxygen Delivery Oxygen Delivery Room Air Medical Decision Making - MDM Narrative Medical decision making narrative: Due to the patient having a history of COPD and pulmonary embolism present with chest pain and shortness of breath we will order a CBC, BMP, EKG, troponin, chest x-ray, lactic acid, blood culture, influenza swab, d dimer. We will also obtain a ventilation perfusion scan to evaluate the patient for possible pulmonary embolus. Patient had an elevated d-dimer of 598. patient had an elevated white count of 13.1. Patient had a mildly elevated BNP of 130. The chest x-ray was essentially unremarkable chest per radiology reading. Patient will need to be admitted to the hospital for further evaluation and management of the patient's chest pain and shortness of breath. The patient's VQ scan showed very low probability for pulmonary embolus. Due to the patient having chest pain and shortness of breath we will admit the patient to the hospital for further evaluation and management. I have spoken with the hospitalist and they have accepted the patient to their service. The patient will be admitted to the hospital at this time. - Medical Records Medical records reviewed: Yes I reviewed the patient's medical records. - Lab Data Lab results reviewed: Yes I reviewed the patient's lab results. Result diagrams: 07/30/17 17:50 07/30/17 17:50 Lab Results 07/30/17 07/30/17 07/30/17 Range/Units 17:50 17:50 17:50 WBC 13.1 H (4.3-11.1) K/mcL RBC 5.12 H (3.82-4.97) M/mcL Hgb 14.8 (11.5-15.4) g/dL Hct 45.6 H (35.3-44.9) % MCV 89.1 (83.0-100.0) fL MCH 28.9 (28.0-33.3) pg MCHC 32.5 (31.6-35.5) g/dL RDW 14.1 (11.5-14.5) % Plt Count 268 (140-400) K/mcL MPV 9.8 (9.4-12.4) fL Immature Gran % 0.3 (0-4) % Seg Neutrophils % 80.8 % Lymphocytes % 13.3 % Monocytes % 4.7 % Eosinophils % 0.7 % Basophils % 0.2 % Neutrophils # 10.6 H (1.6-8.9) K/mcL Lymphocytes # 1.8 (0.6-4.6) K/mcL Monocytes # 0.6 (0.0-1.3) K/mcL Eosinophils # 0.1 (0.0-0.6) K/mcL Basophils # 0.0 (0.0-0.2) K/mcL D-Dimer 598 H (0-500) ng/mLFEU Sodium 139 (136-145) mEq/L Potassium 3.6 (3.5-5.1) mEq/L Chloride 110 H (98-107) mEq/L Carbon Dioxide 26 (23-29) mEq/L BUN 13 (6-20) mg/dL Creatinine 0.75 (0.60-1.20) mg/dL Est GFR ( Amer) > 60 (> 60) Est GFR (Non-Af Amer) > 60 (> 60) BUN/Creatinine Ratio 17 (6-26) Glucose 98 (70-105) mg/dL Calculated Osmolality 288 (280-300) Lactic Acid (0.5-2.2) mmol/L Calcium 8.9 (8.6-10.3) mg/dL Troponin I (< 0.04) ng/mL B-Natriuretic Peptide (Less than 100) pg/mL 07/30/17 07/30/17 07/30/17 Range/Units 17:50 17:50 17:50 WBC (4.3-11.1) K/mcL RBC (3.82-4.97) M/mcL Hgb (11.5-15.4) g/dL Hct (35.3-44.9) % MCV (83.0-100.0) fL MCH (28.0-33.3) pg MCHC (31.6-35.5) g/dL RDW (11.5-14.5) % Plt Count (140-400) K/mcL MPV (9.4-12.4) fL Immature Gran % (0-4) % Seg Neutrophils % % Lymphocytes % % Monocytes % % Eosinophils % % Basophils % % Neutrophils # (1.6-8.9) K/mcL Lymphocytes # (0.6-4.6) K/mcL Monocytes # (0.0-1.3) K/mcL Eosinophils # (0.0-0.6) K/mcL Basophils # (0.0-0.2) K/mcL D-Dimer (0-500) ng/mLFEU Sodium (136-145) mEq/L Potassium (3.5-5.1) mEq/L Chloride (98-107) mEq/L Carbon Dioxide (23-29) mEq/L BUN (6-20) mg/dL Creatinine (0.60-1.20) mg/dL Est GFR ( Amer) (> 60) Est GFR (Non-Af Amer) (> 60) BUN/Creatinine Ratio (6-26) Glucose (70-105) mg/dL Calculated Osmolality (280-300) Lactic Acid 1.5 (0.5-2.2) mmol/L Calcium (8.6-10.3) mg/dL Troponin I < 0.03 (< 0.04) ng/mL B-Natriuretic Peptide 130 H (Less than 100) pg/mL - Radiology Data Radiology results reviewed: Yes I reviewed the patient's radiology results. Chest X-Ray 07/30/17 17:22 IMPRESSION: Essentially unremarkable chest. D/ / Penny Echols MD / Penny Echols MD Interpreting Provider: Penny Echols MD Pulmonary Perfusion Imaging 07/30/17 18:35 IMPRESSION: Very low probability for pulmonary embolus. D/ / John Weber MD / John Weber MD Interpreting Provider: John Weber MD - EKG Data EKG #1 EKG attestation: Yes I reviewed and interpreted this EKG. EKG results narrative: Patient's EKG showed a sinus rhythm with a sinus arrhythmia at a rate of 90 bpm , MI interval of 139, QRS ratio 96, QTc of 397 with a normal axis. This is compared to previous EKG on 08/06/16 which showed a sinus rhythm with a sinus arrhythmia at a rate of 84 bpm there is no acute changes noted between these 2 EKGs. EKG #2 EKG attestation: Yes I reviewed and interpreted this EKG. EKG results narrative: Repeat EKG at 1822 showed sinus tachycardia at a rate of 120 bpm, MI interval of 149, QRS duration of 90, QTc of 406 with a normal axis. There is no STEMI noted on this EKG the patient had received breathing treatment including albuterol prior to second EKG Attestation Statement - Attestation Attestation: Patient was seen with resident physician. I reviewed the history, physical, assessment and plan, and agree with the findings. I also personally evaluated this patient and had [id number] time with this patient. Procedural female presents to department chief complaint of chest pain and shortness of breath. Patient states she has been feeling bad for the last couple days. She has had productive cough. So the chest pain started earlier today flick squeezing tight sensation. She has a history of PEs. She said this feels similar but not entirely. No history of heart disease at this time. She is also had fever she set up 204. On exam vital signs demonstrate that she is afebrile blood pressure and pulse are stable. ENT is unremarkable. Heart regular rhythm and rate. Lungs diffuse wheezing throughout. Abdomen soft and nontender. Extremities unremarkable. Neurologically intact. ED course we will do a full workup for influenza pneumonia and possible PE as well as possible NH. I think this is likely infectious in some regard, but with her multiple other problems we need to rule those out as well. We will likely admit the patient and the hospitalist service for chest pain and shortness of breath. Workup was essentially negative. A V/Q scan as well did not show evidence of PE. Patient continued to have some chest discomfort though we tried several medications. She is allergic to most things. She stated at one point that the only thing that ever works for her is Dilaudid. I was a little uncomfortable giving her narcotics for this as she appeared comfortable especially after breathing treatments. She does have obvious difficulty with breathing. Although this was improved. We will admit her to the hospital service for chest pain and shortness of breath. Agree with resident physician assessment and plan.
[2017-07-30 18:05] LABS: Basophils % 0.2 %; Eosinophils # 0.1 K/mcL (0.0-0.6); Eosinophils % 0.7 %; Hematocrit 45.6 % (35.3-44.9); Hemoglobin 14.8 g/dL (11.5-15.4); Immature Granulocytes % 0.3 % (0-4); Lymphocytes # 1.8 K/mcL (0.6-4.6); Lymphocytes % 13.3 %; Mean Corpuscular HGB Conc 32.5 g/dL (31.6-35.5); Mean Corpuscular Hemoglobin 28.9 pg (28.0-33.3); Mean Corpuscular Volume 89.1 fL (83.0-100.0); Mean Platelet Volume 9.8 fL (9.4-12.4); Monocytes # 0.6 K/mcL (0.0-1.3); Monocytes % 4.7 %; Neutrophils # 10.6 K/mcL (1.6-8.9); Platelet Count 268 K/mcL (140-400); Red Blood Count 5.12 M/mcL (3.82-4.97); Red Cell Distribution Width 14.1 % (11.5-14.5); Segmented Neutrophils % 80.8 %
[2017-07-30] MEDS ORDERED: Aspirin 81 MG TAB.CHEW PO STA (18:18)
[2017-07-30 18:21] LABS: BUN/Creatinine Ratio 17 (6-26); Blood Urea Nitrogen 13 mg/dL (6-20); Calcium 8.9 mg/dL (8.6-10.3); Carbon Dioxide 26 mEq/L (23-29); Chloride 110 mEq/L (98-107); Glucose 98 mg/dL (70-105); Osmolality,Calculated 288 (280-300); Potassium 3.6 mEq/L (3.5-5.1); Sodium 139 mEq/L (136-145); eGFR For African Americans > 60 (> 60); eGFR For Non-African Americans > 60 (> 60)
[2017-07-30] MEDS ORDERED: *HR* Morphine 2 MG/ML SYRINGE IVP ONE (18:21)
[2017-07-30] MEDS ORDERED: Acetaminophen 325 MG TABLET PO ONE (19:04)
--- NOTE | 2017-07-30 21:59 | Internal Med History&Physical ---
<Susan Thornton - Last Filed: 07/30/17 22:20> Date of Encounter: 07/30/17 Time of Encounter: 21:53 Assessment and Plan (1) COPD exacerbation Current visit: Yes Status: Acute Patient has history of COPD and is not on any home oxygen. Patient 02 sat is 95 % on room air. Patient is afebrile and in no respiratory distress at this time. Patient had one breathing treatment in the ED and admits it improved her SOB. CXR was unremarkable. Labs showed elevated WBC at 13.1. EKG showed no acute changes when compared to previous EKG. 1. Will continue DUONEB treatments 2. Will give 40 mg prednisone PO daily. 3. Continue home medication of Azithromycin. 4. Continue to monitor the patient closely. (2) Chest pain of unknown etiology Current visit: Yes Status: Acute Patient is still complaining of chest pain. Vitals are within normal limits. Patient is afebrile. Labs showed an elevated d-dimer of 598, elevated white count of 13.1, and a mildly elevated BNP of 130. Troponins were negative initially. The chest x-ray was essentially unremarkable chest per radiology reading. Patient states she is allergic to contrast dye. Thus, VQ scan was ordered to evaluate for possible PE due to her history. VQ scan showed very low probability for pulmonary embolus. EKG showed no acute changes when compared to previous EKG. 1. Will have patient on cardiac monitoring. 2. Trend series of troponins. 3. Will order an echocardiogram. 4. Will have patient on DVT prophylaxis. 5. Will control patient's pain with Dilaudid. Patient states that she is allergic to nitroglycerin and morphine. (3) DVT prophylaxis Current visit: No Status: Acute Internal Medicine - H&P: HPI Admitted From: Emergency Dept History of present illness: Ms. Shelby is a 46 year old female with a past medical history of pulmonary embolism, COPD, CHF, HLD and current smoker presents to the ED complaining of left sided chest pain and shortness of breath. The patient stated that the chest pain and shortness of breath started today around 3pm and gradually worsening. The patient describes the chest pain as constant and sharp with no radiation that is worse with exertion and coughing. Patient tried 324 mg of aspirin and 2 tablets of 800mg of ibuprofen without any relief. She states that chest pain feels similar to her previous pulmonary embolism but is unsure. She admits associated SOB with the chest pain. She admits cold and congestion symptoms for the past 4-5 days with fever of 104 and admits nausea and vomiting. She also admits mild RUQ abdominal pain that is worse with coughing and palpation. She denies any headaches, vision changes, palpitations, difficulty breathing, constipation, blood in her stool, dysuria, blood in her urine, numbness and tingling, or any weaknesses. Past Med Surg Social Fam HX - Past Medical History Medical history: CHF, COPD, DVT, hyperlipidemia, migraine, pulmonary embolus, seizures, syncope Psychiatric history: anxiety, depression, panic disorder, previous psychiatric hospitalization - Past Surgical History Surgical History: , hysterectomy, other - Social History Smoking Status: Current every day smoker Smokeless Tobacco Status: No Alcohol use: none Drug use: none - Family History Mother Living Status: Hx Family Cardiac Disorders: Yes Hx Family Respiratory Disorders: Yes (lung ca) Hx Family Cancer: Yes (lung) Hx Family GI Disorders: No Hx Family Endocrine Disorder: No Hx Family Neuromuscular Disorders: No Hx Family Neurologic Disorders: No Hx Family HEENT Disorders: No Hx Family Autoimmune Disorders: No Father Living Status: Still Living Hx Family Cardiac Disorders: Yes Hx Family Cancer: Yes Hx Family Endocrine Disorder: Yes (DM) Hx Family Neuromuscular Disorders: Yes (parkinsons) Brother Living Status: Still Living Hx Family Cardiac Disorders: Yes ([place]) Internal Medicine - H&P: Meds Albuterol Neb [Proventil Neb] 2.5 mg IH Q4HR PRN 04/11/17 [History] Aspirin [Lo-Dose Aspirin EC] 81 mg PO DAILY 04/11/17 [History] Promethazine [Phenergan] 25 mg PO Q6HR PRN 04/11/17 [History] Azithromycin [Zithromax] 250 mg PO DAILY #6 tablet 05/19/17 [Rx] Ondansetron ODT [Zofran ODT] 4 mg SL Q6HR #10 tab.rapdis 06/01/17 [Rx] Promethazine [Phenergan] 25 mg PO Q8HR PRN #14 tablet 07/16/17 [Rx] Guaifenesin/D-Methorphan Hb/PE [Robitussin Cough-Cold Cf Liq] 5 ml PO QID PRN # 118 ml 07/28/17 [Rx] 3 Allergy/AdvReac Type Severity Reaction Status Date / Time diphenhydramine Allergy See Verified 07/30/17 17:12 [From Benadryl] Comments gabapentin Allergy See Verified 07/30/17 17:12 Comments hydrocodone [From Vicodin] Allergy See Verified 07/30/17 17:12 Comments ketorolac [From Toradol] Allergy See Verified 07/30/17 17:12 Comments sumatriptan [From Imitrex] Allergy See Verified 07/30/17 17:12 Comments nitroglycerin AdvReac Hypotension Verified 07/30/17 17:12 iv dye AdvReac Severe Hives Uncoded 07/30/17 17:12 All Systems PM: A 10-system review of systems was performed and is negative for pertinent findings except as documented above in the HPI. - Constitutional Vitals: Temp Pulse Resp BP Pulse Ox 98.0 F 90 19 105/65 96 07/30/17 21:49 07/30/17 21:49 07/30/17 21:49 07/30/17 21:49 07/30/17 21:49 General appearance: Present: A&O X 3, answers questions appropriately Exam: Patient is teary on exam as she complains of left sided chest pain. Vitals are within normal limits. - Head Head exam: Present: atraumatic, normocephalic - Eye Eye exam: Present: PERRL, conjuntiva pink, sclera anicteric Pupils: Present: PERRL - ENT ENT exam: Present: mucous membranes moist, normal oropharynx Additional comments: rhinorrhea is present - Neck Neck exam general surgery: Present: supple, trachea midline. Absent: lymphadenopathy - Respiratory Respiratory exam: Present: wheezes (bilateral wheezes in the lower lobes). Absent: accessory muscle use, rales, respiratory distress, rhonchi - Cardiovascular Cardiovascular exam: Present: RRR, +S1, +S2. Absent: diastolic murmur, gallop, rubs, systolic murmur - GI/Abdominal GI/Abdominal exam: Present: normal bowel sounds, soft, tenderness (tender to palpation in the RUQ and epigastric. No ecchymosis, hepatomegaly, or masses. ) , no peritoneal signs. Absent: distended, hepatomegaly, mass, splenomegaly - Extremities Exam Extremities exam: Present: warm, radial pulses palpable and symmetrical. Absent : calf tenderness, cyanotic, pedal edema, tenderness - Neurological Exam Neurological exam: Present: CN II-XII intact, oriented X3, no focal deficits. Absent: pronater drift, facial droop, speech deficit - Skin Skin exam: Present: dry, intact Internal Med - H&P Results - Labs CBC & Chem 7: 07/30/17 17:50 07/30/17 17:50 <Selene Stubbs - Last Filed: 07/31/17 06:03> Date of Encounter: 07/31/17 Internal Medicine - H&P: HPI History of present illness: Ms. Shelby is a 46 year old female All Systems PM: A 10-system review of systems was performed and is negative for pertinent findings except as documented above in the HPI. - Constitutional Vitals: Temp Pulse Resp BP Pulse Ox 98.0 F 75 21 93/56 93 07/31/17 03:33 07/31/17 03:33 07/31/17 03:33 07/31/17 03:33 07/31/17 03:33 Internal Med - H&P Results - Labs CBC & Chem 7: 07/31/17 03:51 07/31/17 03:51 Labs: Short CBC 07/31/17 Range/Units 03:51 WBC 8.1 (4.3-11.1) K/mcL Hgb 13.8 (11.5-15.4) g/dL Hct 43.0 (35.3-44.9) % Plt Count 282 (140-400) K/mcL Neutrophils # 7.5 (1.6-8.9) K/mcL BMP 07/31/17 03:51 Sodium 137 Potassium 3.7 Chloride 107 Carbon Dioxide 25 BUN 17 Creatinine 0.88 Glucose 309 H Calcium 8.9 Cardiac Enzymes 07/30/17 07/31/17 Range/Units 22:30 03:51 Troponin I < 0.03 < 0.03 (< 0.04) ng/mL - Attending Attestation I have seen and examined pt independently, I have discussed with Resident physician Dr Thornton regarding the management plan. Agree with the documentation.
[2017-07-30] MEDS ORDERED: Acetaminophen 325 MG TABLET PO PRN (22:09)
[2017-07-30] MEDS ORDERED: Ondansetron ODT 4 MG TAB.RAPDIS SL PRN (22:09)
[2017-07-30] MEDS ORDERED: Naloxone 0.4 MG/ML INJ IVP PRN (22:09)
[2017-07-30] MEDS ORDERED: Ipratropium/Albuterol Neb 3 ML IH PRN (22:15)
[2017-07-30] MEDS: predniSONE 20 MG TABLET PO SCH (22:42)
[2017-07-30] MEDS: *HR* Heparin 5,000 UNIT/ML VIAL SQ SCH (22:42)
[2017-07-30] MEDS: *HR* HYDROmorphone (PF) 1 MG/ML SYRINGE IVP PRN (22:42)
[2017-07-30] MEDS ORDERED: *HR* LORazepam 1 MG TABLET PO PRN (23:11)
[2017-07-31] MEDS ORDERED: Albuterol 2.5 MG/3 ML NEBULIZER IH PRN (02:44)
[2017-07-31] MEDS: *HR* HYDROmorphone (PF) 1 MG/ML SYRINGE IVP PRN ×3 (03:48→16:31)
[2017-07-31] MEDS: Ipratropium/Albuterol Neb 3 ML IH SCH ×3 (04:34→16:17)
[2017-07-31 04:56] LABS: Basophils % 0.1 %; Hemoglobin 13.8 g/dL (11.5-15.4); Immature Granulocytes % 0.4 % (0-4); Lymphocytes # 0.6 K/mcL (0.6-4.6); Mean Corpuscular HGB Conc 32.1 g/dL (31.6-35.5); Mean Corpuscular Hemoglobin 28.6 pg (28.0-33.3); Mean Corpuscular Volume 89.2 fL (83.0-100.0); Mean Platelet Volume 10.2 fL (9.4-12.4); Monocytes % 0.4 %; Neutrophils # 7.5 K/mcL (1.6-8.9); Platelet Count 282 K/mcL (140-400); Red Blood Count 4.82 M/mcL (3.82-4.97); Red Cell Distribution Width 14.4 % (11.5-14.5); Segmented Neutrophils % 92.1 %
[2017-07-31 05:13] LABS: BUN/Creatinine Ratio 19 (6-26); Blood Urea Nitrogen 17 mg/dL (6-20); Calcium 8.9 mg/dL (8.6-10.3); Carbon Dioxide 25 mEq/L (23-29); Chloride 107 mEq/L (98-107); Chol/HDL Ratio 4.3 (0-4.9); Cholesterol 156 mg/dL (< 200); Glucose 309 mg/dL (70-105); HDL Cholesterol 36 mg/dL (40-59); LDL Cholesterol,Calculated 94 mg/dL (0-99); Magnesium 2.1 mg/dL (1.6-2.6); Osmolality,Calculated 297 (280-300); Phosphorous 1.5 mg/dL (2.7-4.5); Potassium 3.7 mEq/L (3.5-5.1); Sodium 137 mEq/L (136-145); Triglycerides 132 mg/dL (< 150); eGFR For African Americans > 60 (> 60); eGFR For Non-African Americans > 60 (> 60)
[2017-07-31] MEDS: Ondansetron ODT 4 MG TAB.RAPDIS SL SCH ×2 (05:31→12:44)
[2017-07-31] MEDS: *HR* Heparin 5,000 UNIT/ML VIAL SQ SCH (05:31)
[2017-07-31] MEDS ORDERED: Perflutren Lipid Microsphere 1.3 ML in 0.9 % Sodium Chloride 8.7 ML IVP ONE ×2 (08:51→09:30)
[2017-07-31] MEDS ORDERED: Aspirin Enteric Coated 81 MG Tablet PO SCH (09:00)
[2017-07-31] MEDS ORDERED: Azithromycin 250 MG TABLET PO SCH (09:00)
[2017-07-31] MEDS: predniSONE 20 MG TABLET PO SCH (09:25)
--- NOTE | 2017-07-31 12:53 | Internal Med Progress Note ---
Date of Encounter: 07/31/17 Time of Encounter: 11:05 - Assessment and plan (1) Acute exacerbation of chronic obstructive airways disease Current Visit: Yes Status: Acute Assessment and plan: Patient with history of COPD. She does not wear home oxygen. She is not requiring supplemental oxygen here. He reports cough for over one month. It is nonproductive, hacking. She reports burning in her chest as well as bilateral anterior inferior rib pain with cough and tenderness to palpation. Chest x-ray is negative. Vision mild leukocytosis on arrival that has resolved. White count is 8.1 now. She has been afebrile with a MAXIMUM TEMPERATURE of 98.7. She is on room air sats are 92-97%. Lungs diminished with wheezing in posterior bases. There is no rhonchi, rales, stridor, respiratory distress. Continue oxygen when necessary to maintain sats greater than 92%. Continue duo nebs, albuterol nebs, Zithromax, guaifenesin, Sudafed, and prednisone. Chest X-Ray 07/30/17 17:22 IMPRESSION: Essentially unremarkable chest. D/ / Penny Echols MD / Penny Echols MD Interpreting Provider: Penny Echols MD (2) Chest pain of unknown etiology Current Visit: Yes Status: Acute Assessment and plan: Patient presents to the emergency room with continued complaint of left-sided chest pain shortness of breath. Pain onset within hours prior to arrival and was becoming considerably worse. She described as constant, sharp, worse with exertion and coughing. She denies radiation. Patient states that she tried aspirin and ibuprofen at home without any relief. She reports cough and cold symptoms for the past 4-5 days with subjective fevers at home, also admits to nausea and vomiting. She had an elevated d-dimer on arrival, she is unable to have CT A, VQ scan instead she was very low probability for PE. Echocardiogram shows preserved ejection fraction, no segmental dysfunction, no significant valvular dysfunction. Troponins were negative 3 Patient has no recent stress test here, will consider stress test in the morning if pain continues. I suspect however, this pain is musculoskeletal in nature and is related to coughing. (3) Drug-seeking behavior Current Visit: Yes Status: Chronic Assessment and plan: Per pt history. Pt states "they have been trying to change my Ativan for 2 days. " Pt states "they" want it changed to IV from PO because " I get angry and rip my IV out and leave because my mom in these halls and I don't like hospitals." She states that by mouth Ativan is not working and "y'all better do something before I leave and get mad." I explained to her that to by mouth Ativan has longer duration and IV and IV Ativan is used for specific situations. I told her that we would try hydroxyzine 50 mg by mouth 3 times a day when necessary anxiety and I have discontinued the Ativan. (4) DVT prophylaxis Current Visit: No Status: Acute Assessment and plan: SQ Heparin (5) Obesity Current Visit: Yes Status: Acute Assessment and plan: Chronic. Lifestyle changes. Qualifiers: Obesity type: unspecified obesity type Obesity classification: adult class 2 (BMI 35 - 39.9) Serious obesity comorbidity presence: with serious comorbidity Body mass index: BMI 35.0-35.9 Qualified Code(s): E66.9 - Obesity, unspecified; Z68.35 - Body mass index (BMI) 35.0-35.9, adult; Z68.35 - Body mass index (BMI) 35.0-35.9, adult (6) Anxiety Current Visit: Yes Status: Chronic Assessment and plan: Patient reports chronic anxiety. She reports that her mother here at causes her anxiety to be in the hospital. Patient takes no home medications for anxiety. She could porbably benefit from outpatient counseling. Plan as above. - Time Spent With Patient less than 15 minutes - Constitutional Vitals: Temp Pulse Resp BP Pulse Ox 97.7 F 61 16 101/62 97 07/31/17 10:32 07/31/17 10:32 07/31/17 10:32 07/31/17 10:32 07/31/17 10:32 General appearance: Present: A&O X 3, pleasant, no acute distress, obese, answers questions appropriately - Head Head exam: Present: atraumatic, normal inspection, normocephalic - Eye Eye exam: Present: normal appearance, conjuntiva pink, sclera anicteric - Neck Neck exam general surgery: Present: supple, trachea midline. Absent: lymphadenopathy, tenderness - Respiratory Respiratory exam: Present: chest wall tenderness, CTAB. Absent: accessory muscle use, rales, respiratory distress, rhonchi, wheezes - Cardiovascular Cardiovascular exam: Present: RRR, +S1, +S2. Absent: diastolic murmur, gallop, rubs, systolic murmur - GI/Abdominal GI/Abdominal exam: Present: soft, no peritoneal signs. Absent: distended, hepatomegaly, tenderness - Extremities Exam Extremities exam: Present: normal capillary refill, normal inspection, warm, radial pulses palpable and symmetrical. Absent: calf tenderness, cyanotic, pedal edema, tenderness - Neurological Exam Neurological exam: Present: alert, oriented X3, no focal deficits. Absent: facial droop, speech deficit - Skin Skin exam: Present: dry, intact, normal color, warm. Absent: rash Internal Medicine: Result - Labs CBC & Chem 7: 07/31/17 03:51 07/31/17 03:51 Labs: Short CBC 07/31/17 Range/Units 03:51 WBC 8.1 (4.3-11.1) K/mcL Hgb 13.8 (11.5-15.4) g/dL Hct 43.0 (35.3-44.9) % Plt Count 282 (140-400) K/mcL Neutrophils # 7.5 (1.6-8.9) K/mcL BMP 07/31/17 03:51 Sodium 137 Potassium 3.7 Chloride 107 Carbon Dioxide 25 BUN 17 Creatinine 0.88 Glucose 309 H Calcium 8.9 Cardiac Enzymes 07/30/17 07/31/17 07/31/17 Range/Units 22:30 03:51 09:56 Troponin I < 0.03 < 0.03 < 0.03 (< 0.04) ng/mL - ABG Interpretation ABG results: PT/INR, D-dimer D-Dimer 598 ng/mLFEU (0-500) H 07/30/17 17:50 - Impressions Impressions Echocardiogram 07/30/17 22:11 Impressions: LVEF 55-60%. Normal left ventricular diastolic function. No segmental dysfunction. No pulmonary hypertension. No significant valvular dysfunction. Left Ventricular Wall Motion: Rest Echo Findings All wall segments showed normal motion. Findings: Study Quality * Technically adequate exam. Right Ventricle * Normal right ventricular structure and function. Left Atrium * Normal left atrial size. Aortic Valve * Trileaflet aortic valve with normal function. Mitral Valve * Normal mitral valve structure and function. Interatrial Septum * No evidence of PFO by color Doppler. Aorta * Normally sized aortic root. Pericardium * The pericardium appears normal. Left Ventricle * LVEF 55-60%. * Normal LV chamber size, wall thickness and function. * Normal left ventricular diastolic function. * No segmental dysfunction. Tricuspid Valve * Trace tricuspid regurgitation. * No tricuspid stenosis. * No pulmonary hypertension. * Estimated RVSP is 23 mmHg. ECG Findings * Sinus bradycardia. * Sinus rhythm with PACs. Pulmonic Valve * No pulmonic stenosis. * No pulmonic regurgitation. Right Atrium * Mildly dilated right atrium. IVC * Normal IVC dimensions and inspiratory collapse. Consult Discharge Plan - Plan Referrals: NONE,PCP [Primary Care Provider] -
[2017-07-31] MEDS ORDERED: hydrOXYzine pamoate 25 MG CAPSULE PO PRN (12:57)
[2017-07-31 17:03] VITALS: BP 136/79
--- NOTE | 2017-07-31 18:12 | Discharge Summary ---
Date of Encounter: 07/31/17 Time of Encounter: 17:30 - Discharge Diagnosis (1) Acute exacerbation of chronic obstructive airways disease Priority: Primary Status: Acute (2) Chest pain of unknown etiology Priority: Secondary Status: Acute (3) Drug-seeking behavior Priority: Secondary Status: Chronic (4) DVT prophylaxis Priority: Secondary Status: Acute (5) Obesity Priority: Secondary Status: Acute Qualifiers: Obesity type: unspecified obesity type Obesity classification: adult class 2 (BMI 35 - 39.9) Serious obesity comorbidity presence: with serious comorbidity Body mass index: BMI 35.0-35.9 Qualified Code(s): E66.9 - Obesity, unspecified; Z68.35 - Body mass index (BMI) 35.0-35.9, adult; Z68.35 - Body mass index (BMI) 35.0-35.9, adult (6) Anxiety Priority: Secondary Status: Chronic - Discharge Medications Home Medications: Albuterol Neb [Proventil Neb] 2.5 mg IH Q4HR PRN 04/11/17 [History] Aspirin [Lo-Dose Aspirin EC] 81 mg PO DAILY 04/11/17 [History] Ondansetron ODT [Zofran ODT] 4 mg SL Q6HR #10 tab.rapdis 06/01/17 [Rx] Promethazine [Phenergan] 25 mg PO Q8HR PRN #14 tablet 07/16/17 [Rx] Guaifenesin/D-Methorphan Hb/PE [Robitussin Cough-Cold Cf Liq] 5 ml PO QID PRN # 118 ml 07/28/17 [Rx] Allergies/Adverse Reactions: 3 Allergy/AdvReac Type Severity Reaction Status Date / Time diphenhydramine Allergy See Verified 07/30/17 17:12 [From Benadryl] Comments gabapentin Allergy See Verified 07/30/17 17:12 Comments hydrocodone [From Vicodin] Allergy See Verified 07/30/17 17:12 Comments ketorolac [From Toradol] Allergy See Verified 07/30/17 17:12 Comments sumatriptan [From Imitrex] Allergy See Verified 07/30/17 17:12 Comments nitroglycerin AdvReac Hypotension Verified 07/30/17 17:12 iv dye AdvReac Severe Hives Uncoded 07/30/17 17:12 Procedures/tests Complete & Pending: Procedures Performed prior 72 hours Category Date Time Status NM hardy perf SPECT multi [NM] Routine Exams 07/31/17 13:17 Ordered EV echocardiogram w enhance Routine Y 07/30/17 22:11 Completed SP pharm nuclear stress Routine Y 07/31/17 13:17 Ordered Date of admission: 07/30/17 21:07 Primary care physician: PCP NONE Discharging clinician: Kala Michael Anticipated date of discharge: 07/31/17 - Patient Status Disposition: Left Against Medical Advice Condition: Good - Discharge Instructions Follow Up With: NONE,PCP [Primary Care Provider] - - Diet and Activity Activity: resume usual activities as tolerated Hospital course: Ms. Shelby is a 46 year old female past medical history of PE, anxiety, diabetes, COPD, tobacco use, obesity. She presents to the emergency department with complaint of chest pain and shortness of breath. She reports cough that is nonproductive anywhere from 3-4 days to one month. Patient reports reproducible pain to anterior inferior ribs bilaterally. Pain is worse with palpation and cough. Patient states that she was told in the emergency department that she would have a stress test this morning, she states that she has been sitting here all day waiting was unaware of the stress test did not happen on Tuesday until I told her this morning. She states that she can stay at home and get Robitussin to be comfortable in her own bed instead of staying here. She reports that she has attempted to have stress tests in the past unsuccessfully. She states that she has had 3 or 4 stress tests, all of which cause her to have worse chest pain and shortness of breath. She states she does not wish to stay for the stress test due to that, as well as the fact that she is sure that pain is due to cough. She states that she told the emergency department provider that she was not staying more than 1 day. She has decided to sign out AGAINST MEDICAL ADVICE, I discussed with her the fact that she should stay due to her risk factors of age, sex, diabetes, tobacco abuse, obesity. She states that she wants to go home. She reports that she has her own pain medication and a cough medicine at home and is aware of the risk of permanent cardiac damage if she leaves without finishing testing. - Time Spent with Patient Total time spent providing and/or coordinating discharge services: Less than 30 minutes - Constitutional Vitals: Temp Pulse Resp BP Pulse Ox 98.6 F 84 18 136/79 94 07/31/17 15:18 07/31/17 15:18 07/31/17 15:18 07/31/17 17:03 07/31/17 15:18 General appearance: Present: A&O X 3, pleasant, no acute distress, obese, answers questions appropriately - Head Head exam: Present: atraumatic, normal inspection, normocephalic - Eye Eye exam: Present: normal appearance, conjuntiva pink, sclera anicteric - Neck Neck exam general surgery: Present: supple, trachea midline. Absent: lymphadenopathy - Respiratory Respiratory exam: Present: CTAB. Absent: accessory muscle use, rales, rhonchi, wheezes - Cardiovascular Cardiovascular exam: Present: RRR, +S1, +S2. Absent: diastolic murmur, gallop, rubs, systolic murmur - GI/Abdominal GI/Abdominal exam: Present: normal bowel sounds, soft. Absent: distended, hepatomegaly, tenderness - Extremities Exam Extremities exam: Present: normal inspection, warm, radial pulses palpable and symmetrical. Absent: calf tenderness, cyanotic, pedal edema - Neurological Exam Neurological exam: Present: alert, oriented X3, no focal deficits. Absent: facial droop, speech deficit - Skin Skin exam: Present: dry, intact, normal color, warm. Absent: rash
--- NOTE | 2017-08-01 10:22 | Electrocardiograph Report ---
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
--- NOTE | 2017-08-01 10:23 | Electrocardiograph Report ---
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
== END 2017-07-31 17:30 | disposition left against medical advice (07) ==
LOC: 3BNU 17:03 → EMEROO 17:03 → 3BNU 21:25
PROVIDERS: ADMIT Internal Medicine; ATTEND Registered Nurse

== ENCOUNTER 2017-08-03 23:19 | Observation (INO) ==
[2017-08-04 00:44] LABS: Basophils % 0.2 %; Eosinophils # 0.1 K/mcL (0.0-0.6); Eosinophils % 1.3 %; Hematocrit 43.8 % (35.3-44.9); Hemoglobin 14.5 g/dL (11.5-15.4); Immature Granulocytes % 0.3 % (0-4); Lymphocytes # 2.1 K/mcL (0.6-4.6); Lymphocytes % 21.5 %; Mean Corpuscular HGB Conc 33.1 g/dL (31.6-35.5); Mean Corpuscular Hemoglobin 29.4 pg (28.0-33.3); Mean Corpuscular Volume 88.7 fL (83.0-100.0); Mean Platelet Volume 9.6 fL (9.4-12.4); Monocytes # 0.5 K/mcL (0.0-1.3); Monocytes % 5.3 %; Neutrophils # 6.9 K/mcL (1.6-8.9); Platelet Count 330 K/mcL (140-400); Red Blood Count 4.94 M/mcL (3.82-4.97); Red Cell Distribution Width 14.6 % (11.5-14.5); Segmented Neutrophils % 71.4 %
[2017-08-04 00:49] LABS: Prothrombin Time 10.5 Seconds (9.4-12.1)
[2017-08-04 00:52] LABS: Activated Partial Thrombo Time 29.6 Seconds (26.0-36.0)
[2017-08-04 00:57] LABS: BUN/Creatinine Ratio 15 (6-26); Blood Urea Nitrogen 13 mg/dL (6-20); Calcium 9.4 mg/dL (8.6-10.3); Carbon Dioxide 25 mEq/L (23-29); Chloride 108 mEq/L (98-107); Glucose 99 mg/dL (70-105); Osmolality,Calculated 284 (280-300); Sodium 137 mEq/L (136-145); eGFR For African Americans > 60 (> 60); eGFR For Non-African Americans > 60 (> 60)
--- NOTE | 2017-08-04 01:16 | Emergency Department Note ---
Disposition Clinical Impression: Cough Chest pain Qualifiers: Chest pain type: unspecified Qualified Code(s): R07.9 - Chest pain, unspecified Dyspnea Qualifiers: Dyspnea type: shortness of breath Qualified Code(s): R06.02 - Shortness of breath Disposition: Admitted As Inpatient Condition: Fair Referrals: NONE,PCP [Primary Care Provider] - Forms: ED Satisfaction Letter Time of Disposition: 01:51 General Adult HPI - General Chief complaint: ED Chest Pain Stated complaint: cheryl Time Seen by Provider: 08/03/17 23:57 Source: patient Limitations: no limitations Nursing Notes Reviewed: Yes Vital Signs Reviewed: Yes - History of Present Illness HPI Narrative: Patient is a 46-year-old female that presents to emergency department with chest pain and shortness of breath that has been ongoing for the past 5 days. She states that she recently signed out from the hospital AMA on Tuesday. She states that the chest pain is on the left side of her chest and radiates into her neck and left arm. States nothing seems to make it any better or worse. She states that she rates her pain as a 10 out of 10. She states that she has been coughing up phlegm and sometimes is blood-tinged. Patient also states that she has been having some black-colored stools. Pain Scale: 9 - Related Data Home Medications Medication Instructions Recorded Confirmed Albuterol Neb [Proventil Neb] 2.5 mg IH Q4HR PRN 04/11/17 07/31/17 Aspirin [Lo-Dose Aspirin EC] 81 mg PO DAILY 04/11/17 07/31/17 Previous Rx's Medication Instructions Recorded Ondansetron ODT [Zofran ODT] 4 mg SL Q6HR #10 tab.rapdis 06/01/17 Promethazine [Phenergan] 25 mg PO Q8HR PRN #14 tablet 07/16/17 Guaifenesin/D-Methorphan Hb/PE 5 ml PO QID PRN #118 ml 07/28/17 [Robitussin Cough-Cold Cf Liq] Allergies Allergy/AdvReac Type Severity Reaction Status Date / Time diphenhydramine Allergy See Verified 07/30/17 17:12 [From Benadryl] Comments gabapentin Allergy See Verified 07/30/17 17:12 Comments hydrocodone [From Vicodin] Allergy See Verified 07/30/17 17:12 Comments ketorolac [From Toradol] Allergy See Verified 07/30/17 17:12 Comments sumatriptan [From Imitrex] Allergy See Verified 07/30/17 17:12 Comments nitroglycerin AdvReac Hypotension Verified 07/30/17 17:12 iv dye AdvReac Severe Hives Uncoded 07/30/17 17:12 All systems ED: reviewed and negative except as stated. 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 Absent: respiratory distress, wheezes - Cardiovascular Cardiovascular exam: Present: regular rate, normal rhythm, normal heart sounds, +S1, +S2 - Abdominal Exam Abdominal exam: Present: soft, tenderness, normal bowel sounds Abdominal tenderness: Present: epigastrium, moderate - Neurological Exam Neurological exam: Present: alert, oriented X3 - Psychiatric Psychiatric exam: Present: other (Patient is crying on exam) - Skin Skin exam: Present: warm, dry, intact Course Vital Signs Temperature 98.2 F 08/03/17 23:41 Pulse Rate 104 08/03/17 23:41 Respiratory Rate 20 08/03/17 23:41 Blood Pressure 140/72 08/03/17 23:41 O2 Sat by Pulse Oximetry 97 08/03/17 23:41 Temperature 98.2 F 08/03/17 23:41 Pulse Rate 78 08/04/17 02:06 Respiratory Rate 20 08/04/17 02:06 Blood Pressure 117/59 08/04/17 02:06 O2 Sat by Pulse Oximetry 99 08/04/17 02:06 Oxygen Delivery Oxygen Delivery Room Air Medical Decision Making - MDM Narrative Medical decision making narrative: Due the patient presented to the emergency department chest insurance breath she will receive a cardiac workup including a CBC, BMP, troponin, chest x-ray and EKG. Troponin was negative chest x-ray showed no acute processes, EKG showed a sinus rhythm. The remainder laboratory testing is unremarkable. I called and spoken with the hospitalist and the patient will be readmitted due to the patient's signing out 2 days ago and returning for worsening of her symptoms. The hospital has excepted the patient to their service. The patient will be admitted to the hospital for further evaluation and management. - Medical Records Medical records reviewed: Yes I reviewed the patient's medical records. - Lab Data Lab results reviewed: Yes I reviewed the patient's lab results. Result diagrams: 08/04/17 00:38 08/04/17 00:38 Lab Results 08/04/17 08/04/17 08/04/17 Range/Units 00:38 00:38 00:38 WBC 9.7 (4.3-11.1) K/mcL RBC 4.94 (3.82-4.97) M/mcL Hgb 14.5 (11.5-15.4) g/dL Hct 43.8 (35.3-44.9) % MCV 88.7 (83.0-100.0) fL MCH 29.4 (28.0-33.3) pg MCHC 33.1 (31.6-35.5) g/dL RDW 14.6 H (11.5-14.5) % Plt Count 330 (140-400) K/mcL MPV 9.6 (9.4-12.4) fL Immature Gran % 0.3 (0-4) % Seg Neutrophils % 71.4 % Lymphocytes % 21.5 % Monocytes % 5.3 % Eosinophils % 1.3 % Basophils % 0.2 % Neutrophils # 6.9 (1.6-8.9) K/mcL Lymphocytes # 2.1 (0.6-4.6) K/mcL Monocytes # 0.5 (0.0-1.3) K/mcL Eosinophils # 0.1 (0.0-0.6) K/mcL Basophils # 0.0 (0.0-0.2) K/mcL PT 10.5 (9.4-12.1) Seconds INR 1.0 APTT 29.6 (26.0-36.0) Seconds Sodium 137 (136-145) mEq/L Potassium 4.0 (3.5-5.1) mEq/L Chloride 108 H (98-107) mEq/L Carbon Dioxide 25 (23-29) mEq/L BUN 13 (6-20) mg/dL Creatinine 0.84 (0.60-1.20) mg/dL Est GFR ( Amer) > 60 (> 60) Est GFR (Non-Af Amer) > 60 (> 60) BUN/Creatinine Ratio 15 (6-26) Glucose 99 (70-105) mg/dL Calculated Osmolality 284 (280-300) Calcium 9.4 (8.6-10.3) mg/dL Troponin I (< 0.04) ng/mL 08/04/17 Range/Units 00:38 WBC (4.3-11.1) K/mcL RBC (3.82-4.97) M/mcL Hgb (11.5-15.4) g/dL Hct (35.3-44.9) % MCV (83.0-100.0) fL MCH (28.0-33.3) pg MCHC (31.6-35.5) g/dL RDW (11.5-14.5) % Plt Count (140-400) K/mcL MPV (9.4-12.4) fL Immature Gran % (0-4) % Seg Neutrophils % % Lymphocytes % % Monocytes % % Eosinophils % % Basophils % % Neutrophils # (1.6-8.9) K/mcL Lymphocytes # (0.6-4.6) K/mcL Monocytes # (0.0-1.3) K/mcL Eosinophils # (0.0-0.6) K/mcL Basophils # (0.0-0.2) K/mcL PT (9.4-12.1) Seconds INR APTT (26.0-36.0) Seconds Sodium (136-145) mEq/L Potassium (3.5-5.1) mEq/L Chloride (98-107) mEq/L Carbon Dioxide (23-29) mEq/L BUN (6-20) mg/dL Creatinine (0.60-1.20) mg/dL Est GFR ( Amer) (> 60) Est GFR (Non-Af Amer) (> 60) BUN/Creatinine Ratio (6-26) Glucose (70-105) mg/dL Calculated Osmolality (280-300) Calcium (8.6-10.3) mg/dL Troponin I < 0.03 (< 0.04) ng/mL - Radiology Data Radiology results reviewed: Yes I reviewed the patient's radiology results. Chest X-Ray 08/04/17 00:24 IMPRESSION: Negative portable chest. D/ / Bhupinder Cervantes MD / Bhupinder Cervantes MD Interpreting Provider: Bhupinder Cervantes MD - EKG Data EKG #1 EKG attestation: Yes I reviewed and interpreted this EKG. EKG results narrative: EKG showed a sinus rhythm at a rate of 85 beats minute, IN interval of 1:30, QRS duration of 98, QTC of 383 with a normal axis. There is no evidence of STEMI noted on this EKG.
--- NOTE | 2017-08-04 02:00 | Emergency Department Note ---
START Narrative - START START: I examined this patient and my medical decision-making was reviewed with the Resident Physician. I agree with the documented findings, disposition and treatment plan as described except to the extent set forth below. 46 matteo old female wiht chest pain for the past 5 days and staets that she left the hospital AMA due to anxiety from being in a room where her mother 3 years ago and state that she was told to come back if her symptosmt worsened because they wanted to do a stress test and she left. She will be readmitted to to medicine for CP r/o ACS
[2017-08-04] MEDS ORDERED: Aspirin 81 MG TAB.CHEW PO STA (02:13)
[2017-08-04] MEDS ORDERED: Naloxone 0.4 MG/ML INJ IVP PRN (02:15)
[2017-08-04] MEDS ORDERED: Ondansetron 4 MG/2 ML VIAL IVP PRN (02:15)
[2017-08-04 02:53] LABS: Basophils % 0.2 %; Eosinophils # 0.1 K/mcL (0.0-0.6); Eosinophils % 1.3 %; Hemoglobin 14.5 g/dL (11.5-15.4); Immature Granulocytes % 0.3 % (0-4); Immature Platelets 4.4 % (1.1-6.1); Lymphocytes # 2.2 K/mcL (0.6-4.6); Mean Corpuscular Hemoglobin 29.4 pg (28.0-33.3); Mean Corpuscular Volume 89.1 fL (83.0-100.0); Mean Platelet Volume 9.9 fL (9.4-12.4); Monocytes # 0.6 K/mcL (0.0-1.3); Monocytes % 5.5 %; Neutrophils # 7.5 K/mcL (1.6-8.9); Platelet Count 228 K/mcL (140-400); Red Blood Count 4.94 M/mcL (3.82-4.97); Red Cell Distribution Width 14.6 % (11.5-14.5); Segmented Neutrophils % 71.7 %
[2017-08-04 03:06] LABS: BUN/Creatinine Ratio 15 (6-26); Blood Urea Nitrogen 13 mg/dL (6-20); Calcium 9.1 mg/dL (8.6-10.3); Carbon Dioxide 24 mEq/L (23-29); Chloride 109 mEq/L (98-107); Chol/HDL Ratio 5.4 (0-4.9); Cholesterol 178 mg/dL (< 200); Glucose 87 mg/dL (70-105); HDL Cholesterol 33 mg/dL (40-59); LDL Cholesterol,Calculated 91 mg/dL (0-99); Magnesium 2.5 mg/dL (1.6-2.6); Osmolality,Calculated 283 (280-300); Phosphorous 3.6 mg/dL (2.7-4.5); Sodium 137 mEq/L (136-145); Triglycerides 270 mg/dL (< 150); eGFR For African Americans > 60 (> 60); eGFR For Non-African Americans > 60 (> 60)
[2017-08-04] MEDS ORDERED: *HR* HYDROmorphone (PF) 1 MG/ML SYRINGE IVP ONE (03:30)
[2017-08-04] MEDS ORDERED: *HR* LORazepam 2 MG/ML VIAL IVP ONE (03:31)
[2017-08-04] MEDS ORDERED: Benzonatate 100 MG CAPSULE PO PRN (03:32)
--- NOTE | 2017-08-04 03:37 | Internal Med History&Physical ---
Date of Encounter: 08/04/17 Time of Encounter: 03:15 Assessment and Plan (1) Chest pain Current visit: No Status: Acute Will admit to rule out ACS serial TNI NPO at this time nuclear stress test in am ASA, Statin Dilaudid prn pain tele monitoring consider cardiology evaluation if stress test is abnormal Qualifiers: Chest pain type: unspecified Qualified Code(s): R07.9 - Chest pain, unspecified (2) Anxiety Current visit: No Status: Chronic Reported hx of anxiety will start ativan 0.5mg IV q8h prn severe anxiety (3) COPD (chronic obstructive pulmonary disease) Current visit: No Status: Chronic Not in acute exacerbation saturating well on room air duonebs prn sob/wheezing Qualifiers: COPD type: unspecified COPD Qualified Code(s): J44.9 - Chronic obstructive pulmonary disease, unspecified (4) Tobacco abuse Current visit: No Status: Chronic smoking cessation counseling provided pt refused nicotine supplementation therapy (5) Obesity (BMI 30-39.9) Current visit: Yes Status: Chronic (6) DVT prophylaxis Current visit: No Status: Acute Heparin SQ Internal Medicine - H&P: HPI Chief complaint: chest pain Admitted From: Home Plans for Post Hospital Care: Home History of present illness: Ms. Shelby is a 46 year old female with PMH of COPD, CHF, HLD, chronic smoker who presents to the ER for diffuse chest pain. Pt left AMA on 07/31/17 when she was admitted for the same. She was scheduled to have a stress test but reported of having a panic attack and left shortly after. At this time, she reports of sharp diffuse chest pain with radiation to the neck and left arm. Reports of allergies to morphine and nitro. Reports of being able to tolerate dilaudid. Describes the chest pain as sharp in nature, is on both right and left side, radiating to the neck, denies any exacerbating or alleviating factors. Reports of smoking 2ppd which she has not done in the last four days. Reports of having a productive cough. Past Med Surg Social Fam HX - Past Medical History Medical history: CHF, COPD, DVT, hyperlipidemia, migraine, pulmonary embolus, seizures, syncope Psychiatric history: anxiety, depression, panic disorder, previous psychiatric hospitalization - Past Surgical History Surgical History: , hysterectomy, other - Social History Smoking Status: Current every day smoker Smokeless Tobacco Status: No Alcohol use: none Drug use: none - Family History Mother Living Status: Hx Family Cardiac Disorders: Yes Hx Family Respiratory Disorders: Yes (lung ca) Hx Family Cancer: Yes (lung) Hx Family GI Disorders: No Hx Family Endocrine Disorder: No Hx Family Neuromuscular Disorders: No Hx Family Neurologic Disorders: No Hx Family HEENT Disorders: No Hx Family Autoimmune Disorders: No Father Living Status: Still Living Hx Family Cardiac Disorders: Yes Hx Family Cancer: Yes Hx Family Endocrine Disorder: Yes (DM) Hx Family Neuromuscular Disorders: Yes (parkinsons) Brother Living Status: Still Living Hx Family Cardiac Disorders: Yes ([place]) Internal Medicine - H&P: Meds Albuterol Neb [Proventil Neb] 2.5 mg IH Q4HR PRN 04/11/17 [History] Aspirin [Lo-Dose Aspirin EC] 81 mg PO DAILY 04/11/17 [History] Ondansetron ODT [Zofran ODT] 4 mg SL Q6HR #10 tab.rapdis 06/01/17 [Rx] Promethazine [Phenergan] 25 mg PO Q8HR PRN #14 tablet 07/16/17 [Rx] Guaifenesin/D-Methorphan Hb/PE [Robitussin Cough-Cold Cf Liq] 5 ml PO QID PRN # 118 ml 07/28/17 [Rx] 3 Allergy/AdvReac Type Severity Reaction Status Date / Time diphenhydramine Allergy See Verified 07/30/17 17:12 [From Benadryl] Comments gabapentin Allergy See Verified 07/30/17 17:12 Comments hydrocodone [From Vicodin] Allergy See Verified 07/30/17 17:12 Comments ketorolac [From Toradol] Allergy See Verified 07/30/17 17:12 Comments sumatriptan [From Imitrex] Allergy See Verified 07/30/17 17:12 Comments nitroglycerin AdvReac Hypotension Verified 07/30/17 17:12 iv dye AdvReac Severe Hives Uncoded 07/30/17 17:12 All Systems PM: A 10-system review of systems was performed and is negative for pertinent findings except as documented above in the HPI. - Constitutional Constitutional: as per HPI - Constitutional Vitals: Temp Pulse Resp BP Pulse Ox 98.3 F 73 20 104/80 96 08/04/17 03:02 08/04/17 03:02 08/04/17 03:02 08/04/17 03:02 08/04/17 03:02 General appearance: Present: A&O X 3, no acute distress, obese, answers questions appropriately - Head Head exam: Present: atraumatic, normocephalic - Eye Eye exam: Present: conjuntiva pink, sclera anicteric - Respiratory Respiratory exam: Absent: respiratory distress, wheezes (equal air entry bilaterally ) - Cardiovascular Cardiovascular exam: Present: RRR, +S1, +S2. Absent: diastolic murmur, gallop, rubs, systolic murmur - GI/Abdominal GI/Abdominal exam: Present: normal bowel sounds, soft, no peritoneal signs. Absent: distended, tenderness - Extremities Exam Extremities exam: Present: warm, radial pulses palpable and symmetrical. Absent : calf tenderness, cyanotic, pedal edema - Neurological Exam Neurological exam: Present: alert, oriented X3 Internal Med - H&P Results - Labs CBC & Chem 7: 08/04/17 02:43 08/04/17 02:43
[2017-08-04] MEDS ORDERED: Ipratropium/Albuterol Neb 3 ML IH PRN (03:47)
[2017-08-04] MEDS: *HR* LORazepam 2 MG/ML VIAL IVP PRN ×2 (03:57→12:35)
[2017-08-04] MEDS ORDERED: Regadenoson 0.4 MG/5 ML SYRINGE IVP ONE (06:09)
[2017-08-04] MEDS: *HR* Heparin 5,000 UNIT/ML VIAL SQ SCH ×2 (06:38→15:12)
[2017-08-04] MEDS: *HR* HYDROmorphone (PF) 1 MG/ML SYRINGE IVP PRN ×2 (10:45→15:12)
--- NOTE | 2017-08-04 15:15 | Electrocardiograph Report ---
[place] [id number] Test Date: 2017-08-04 Pat Name: Alyssa Shelby Department: 102 Room: 3B Gender: F [employer] Attendant: : 1970 Requested By: Jodi Roblero Order Number: [id number] Reading MD: Nuha Henning Measurements Intervals [place] Rate: 85 P: 69 SC: 130 QRS: 28 QRSD: 98 T: 42 QT: 341 QTc: 383 Interpretive Statements SINUS RHYTHM POSSIBLE LEFT ATRIAL ENLARGEMENT [-0.1mV P WAVE IN V1/V2] Electronically Signed On 08-04-2017 15:13:05 EST by Nuha Henning
[2017-08-04] MEDS ORDERED: traMADol 50 MG TABLET PO PRN (15:36)
--- NOTE | 2017-08-04 15:47 | Internal Med Progress Note ---
Date of Encounter: 08/04/17 Time of Encounter: 15:44 - Assessment and plan (1) Chest pain Current Visit: No Status: Acute Assessment and plan: presented with CP on 07/30/2017; plan was for stress test at that time however patient left AMA. Now she returns with recurrent chest pain is relieved with IV Dilaudid only. CXR negative, serial troponins negative. EKG without acute ST changes. 07/30/17 V/Q scan with low probability for embolism. TTE with EF 55% , no valvular abnormalities. Nuclear stress test negative for ischemia or infarct. Etiology for chest pain unknown; concern for malingering as chest pain appears to be relieved with IV Dilaudid only. Stop IV Dilaudid, add PRN Lidoderm patch and tramadol. Consider cardiology consult if chest pain persists. Qualifiers: Chest pain type: unspecified Qualified Code(s): R07.9 - Chest pain, unspecified (2) COPD (chronic obstructive pulmonary disease) Current Visit: No Status: Chronic Assessment and plan: per hx. No evidence of exacerbation. Qualifiers: COPD type: unspecified COPD Qualified Code(s): J44.9 - Chronic obstructive pulmonary disease, unspecified (3) History of pulmonary embolism Current Visit: No Status: Chronic Assessment and plan: per hx. 07/30/17 V/Q scan noted as above. (4) DVT prophylaxis Current Visit: No Status: Acute Assessment and plan: heparin - Subjective Interval history: Thank you appetite. Patient is new to me, information obtained from chart review and patient report. Patient still complained of left-sided chest pain. Chest pain is localized under left breast. Nothing makes pain worse and IV Dilaudid improved pain. She reports history of pulmonary embolism on the right side and was on anticoagulation in the past. She hears drowsy and lethargic states that she received IV Ativan and Dilaudid. - Constitutional Vitals: Temp Pulse Resp BP Pulse Ox 97.9 F 72 16 103/67 94 08/04/17 15:16 08/04/17 15:16 08/04/17 15:16 08/04/17 15:16 08/04/17 15:16 General appearance: Present: A&O X 3, no acute distress, obese, answers questions appropriately Exam: Drowsy but oriented - Head Head exam: Present: atraumatic, normocephalic - Eye Eye exam: Present: PERRL, conjuntiva pink, sclera anicteric Pupils: Present: PERRL - Neck Neck exam general surgery: Present: supple, trachea midline. Absent: lymphadenopathy - Respiratory Respiratory exam: Present: CTAB. Absent: accessory muscle use, rales, rhonchi, wheezes - Cardiovascular Cardiovascular exam: Present: RRR, +S1, +S2. Absent: diastolic murmur, gallop, rubs, systolic murmur - GI/Abdominal GI/Abdominal exam: Present: normal bowel sounds, soft, no peritoneal signs. Absent: distended, tenderness - Extremities Exam Extremities exam: Present: warm, radial pulses palpable and symmetrical. Absent : calf tenderness, cyanotic, pedal edema - Neurological Exam Neurological exam: Present: CN II-XII intact, oriented X3, no focal deficits. Absent: pronater drift, facial droop, speech deficit - Skin Skin exam: Present: dry, intact Internal Medicine: Result - Labs CBC & Chem 7: 08/04/17 02:43 08/04/17 02:43 Labs: Cardiac Enzymes 08/04/17 Range/Units 09:59 Troponin I < 0.03 (< 0.04) ng/mL - ABG Interpretation ABG results: PT/INR, D-dimer PT 10.5 Seconds (9.4-12.1) 08/04/17 00:38 Consult Discharge Plan - Plan Referrals: NONE,PCP [Primary Care Provider] -
[2017-08-04 19:23] VITALS: BP 145/73
--- NOTE | 2017-08-13 08:03 | Event Note ---
Date of Encounter: 08/05/17 Time of Encounter: 08:00 Ms. Shelby is a 46 year old female with PMH of COPD, CHF, HLD, chronic smoker who presented to [facility] ER for diffuse chest pain. Of note, patient left AMA on when she was admitted for the same sx's. Work-up this hospitalization included negative CXR negative serial troponins. EKG without acute ST changes. 07/30/17 V/Q scan with low probability for embolism. TTE with EF 55%, no valvular abnormalities. Nuclear stress test negative for ischemia or infarct. There was concern for malingering as chest pain relieved with IV Dilaudid only. IV Dilaudid was stopped and PRN Lidoderm patch and tramadol was added. Patient left AMA on 08/04/2017
== END 2017-08-04 20:58 | disposition left against medical advice (07) ==
LOC: EMEROO 23:19 → 3BNU 23:19
PROVIDERS: ADMIT Internal Medicine Hematology & Oncology; ATTEND Registered Nurse

== ENCOUNTER 2019-02-13 20:54 | Observation (INO) ==
[2019-02-13] MEDS ORDERED: Ziprasidone 10 MG in Water for inj. (sterile) 0.5 ML IM ONE (22:53)
[2019-02-13] MEDS ORDERED: Aspirin 81 MG TAB.CHEW PO ONE (22:53)
[2019-02-13 23:21] LABS: Basophils % 0.4 %; Eosinophils # 0.2 K/mcL (0.0-0.6); Eosinophils % 1.6 %; Hematocrit 45.2 % (35.3-44.9); Hemoglobin 14.9 g/dL (11.5-15.4); Immature Granulocytes % 0.4 % (0-4); Lymphocytes # 2.6 K/mcL (0.6-4.6); Lymphocytes % 24.2 %; Mean Corpuscular Hemoglobin 29.2 pg (28.0-33.3); Mean Corpuscular Volume 88.5 fL (83.0-100.0); Mean Platelet Volume 9.4 fL (9.4-12.4); Monocytes # 0.7 K/mcL (0.0-1.3); Neutrophils # 7.1 K/mcL (1.6-8.9); Platelet Count 320 K/mcL (140-400); Red Blood Count 5.11 M/mcL (3.82-4.97); Red Cell Distribution Width 15.3 % (11.5-14.5); Segmented Neutrophils % 66.4 %; White Blood Count 10.6 K/mcL (4.3-11.1)
[2019-02-13 23:32] LABS: INR 0.9
[2019-02-13 23:35] LABS: Activated Partial Thrombo Time 34.9 Seconds (26.0-36.0)
[2019-02-13 23:43] LABS: Alanine Aminotransferase 14 Units/L (7-52); Albumin 3.8 g/dL (3.5-5.7); Albumin/Globulin Ratio 1.4 (1.1-2.2); Alkaline Phosphatase 78 Units/L (34-104); Aspartate Amino Transferase 14 Units/L (13-39); BUN/Creatinine Ratio 13 (6-26); Bilirubin,Total 0.3 mg/dL (0.3-1.0); Blood Urea Nitrogen 13 mg/dL (6-20); Calcium 8.9 mg/dL (8.6-10.3); Carbon Dioxide 26 mEq/L (23-29); Chloride 110 mEq/L (98-107); Globulin 2.7 g/dL (2.4-3.5); Glucose 89 mg/dL (70-105); Osmolality,Calculated 290 (280-300); Potassium 3.5 mEq/L (3.5-5.1); Sodium 140 mEq/L (136-145); Total Protein 6.5 g/dL (6.4-8.9); Troponin I < 0.03 ng/mL (< 0.04); eGFR For African Americans > 60 (> 60); eGFR For Non-African Americans 60 (> 60)
[2019-02-14] MEDS ORDERED: OLANZapine 10 MG VIAL IM ONE (00:33)
[2019-02-14] MEDS ORDERED: Naloxone 0.4 MG/ML INJ IVP PRN (04:47)
[2019-02-14] MEDS ORDERED: Acetaminophen IV 1,000 MG/100 ML INFUS..BTL IVPB ONE (05:17)
[2019-02-14 06:27] LABS: Hematocrit 41.8 % (35.3-44.9); Hemoglobin 13.2 g/dL (11.5-15.4); Mean Corpuscular HGB Conc 31.6 g/dL (31.6-35.5); Mean Corpuscular Hemoglobin 28.2 pg (28.0-33.3); Mean Corpuscular Volume 89.3 fL (83.0-100.0); Mean Platelet Volume 10.1 fL (9.4-12.4); Platelet Count 283 K/mcL (140-400); Red Blood Count 4.68 M/mcL (3.82-4.97); Red Cell Distribution Width 15.3 % (11.5-14.5); White Blood Count 7.9 K/mcL (4.3-11.1)
[2019-02-14 06:47] LABS: BUN/Creatinine Ratio 13 (6-26); Blood Urea Nitrogen 13 mg/dL (6-20); Carbon Dioxide 25 mEq/L (23-29); Chloride 107 mEq/L (98-107); Glucose 152 mg/dL (70-105); Osmolality,Calculated 297 (280-300); Potassium 3.5 mEq/L (3.5-5.1); Sodium 142 mEq/L (136-145); eGFR For African Americans > 60 (> 60); eGFR For Non-African Americans 58 (> 60)
[2019-02-14] MEDS ORDERED: *HR* LORazepam 0.5 MG TABLET PO ONE (06:59)
[2019-02-14 07:05] VITALS: BP 124/80
== END 2019-02-14 08:15 | disposition left against medical advice (07) ==
LOC: 3BNU 20:54 → EMEROOARM 20:54 → 3BNU 02-14 00:44
PROVIDERS: ADMIT Internal Medicine Nephrology; ATTEND Internal Medicine Nephrology